=== PATIENT | female | born 1935 | race Caucasian/White ===

== ENCOUNTER 2016-05-27 16:47 | Inpatient (IN) | payer MEDICARE ==
--- NOTE | ~2016-05-27 | CT71 ---
[facility] A Service of [facility] RADIOLOGY TEXT RESULTS PATIENT: JACQUIE CASAREZ LOCATION: [facility] 323- : 35 UNIT #: [id number] AGE: [address]: Donis Sifuentes MD SEX: F ORDER DR: [id number] [facility] [address] [facility]. [place], [place] [address] [id number] I MR#: [id number] Acc #: [id number] NAME: JACQUIE CASAREZ. : 1935 SEX: F STUDY DATE/TIME: 06/09/2016 19:56 UNIT: A [facility] ROOM: [facility] STUDY DESCRIPTION: CT Head Wo Contrast Attending Physician: Donis Sifuentes M.D. Ordering Physician: Haydee Ontiveros M.D. Primary Care Physician: Ed Gates M.D. MEDICAL IMAGING REPORT This report is preliminary unless electronic signature is present EXAMINATION Noncontrast CT head. DATE 06/09/2016 at 19:56. HISTORY Weakness since 05/20/2016. Lethargy. Unsteady gait. History of cardiac disease. History of breast cancer. COMPARISON Noncontrast CT head 04/30/2006. TECHNIQUE This CT exam was performed with one or more of the following radiation dose reduction techniques: automatic exposure control, adjustment of mA and/or kV according to patient size, and iterative reconstruction. FINDINGS Chronic-appearing lacunar infarcts in the bilateral lentiform nuclei. Mild generalized atrophy. Periventricular white matter hypodensities thought to represent changes of chronic microvascular disease, similar to 04/30/2016. No evidence of acute or evolving infarct. Age-appropriate parenchymal atrophy. No acute calvarial abnormality. Paranasal sinuses and mastoid air cells are clear. IMPRESSION 1. No acute intracranial findings or significant change compared to 04/30/2016. 2. Chronic microvascular disease changes in the deep white matter of the brain, with chronic-appearing lacunar infarcts in the bilateral lentiform nuclei and, not mentioned in the report, within the right thalamus. [facility] A Service of [facility] RADIOLOGY TEXT RESULTS PATIENT: JACQUIE CASAREZ LOCATION: [facility] 323-01 : 35 UNIT #: [id number] AGE: [address]: Donis Sifuentes MD SEX: F ORDER DR: 3. Mild age-appropriate atrophy. Dictated by... Enid Richey M.D. THIS IS AN ELECTRONICALLY VERIFIED REPORT Enid Richey M.D. at 06/10/2016 10:01 AM CHILO/farooq TD: 06/10/2016 09:02 JOB #: [id number] MEDICAL IMAGING REPORT COPY
--- NOTE | ~2016-05-27 | XA166 ---
[facility] A Service of [facility] RADIOLOGY TEXT RESULTS PATIENT: JACQUIE CASAREZ LOCATION: B 560-01 : 35 UNIT #: [id number] AGE: [address]: Donis Sifuentes MD SEX: F ORDER DR: [id number] [facility] [address] [facility] [place], [place] [address] [id number] I MR#: [id number] Acc #: [id number] NAME: JACQUIE CASAREZ : 1935 SEX: F STUDY DATE/TIME: 06/01/2016 16:13 UNIT: [facility] ROOM: [facility] STUDY DESCRIPTION: XA PICC Line Placement WO Port Attending Physician: Donis Sifuentes M.D. Ordering Physician: Donis Sifuentes M.D. Primary Care Physician: Ed Gates M.D. MEDICAL IMAGING REPORT This report is preliminary unless electronic signature is present EXAM Attempted PICC line placement HISTORY Patient requires IV access for COPD exacerbation. PROCEDURE The procedure was explained to the patient including risks, benefits, potential complications, and potential for alternatives forms of treatment. Informed consent was obtained and prior to initiating the procedure, a formal timeout procedure was performed. Using all elements of maximal sterile barrier technique including hand hygiene, caps, sterile gowns and gloves, and masks, the right arm was prepped with 2% Chlorhexidine with cutaneous antisepsis and covered with a large sterile sheet. Real-time sterile ultrasound guidance was used to localize multiple right upper extremity veins all of which were found to be patent and compressible. They did seem to vary in caliber and upon access I was unable to advance a wire. Please note images of these vessels were technically limited as image quality on the sinus site was extremely poor. I subsequently turned my attention to the left side, again, multiple attempts were made without success. Again, there was limited visualization of the vessels due to poor quality images from the SonoSite. At this point, the procedure was terminated. A PICC line nurse will be contacted as will [employer] to address the image quality issues on the SonoSite. IMPRESSION Unsuccessful bilateral attempted PICC line placement. This was not felt to be due to poor visualization of the vessels due to poor quality images from the SonoSite, [employer] will be contacted for service on the SonoSite [facility] A Service of [facility] RADIOLOGY TEXT RESULTS PATIENT: JACQUIE CASAREZ LOCATION: [facility] [address] : 35 UNIT #: [id number] AGE: [address]: Donis Sifuentes MD SEX: F ORDER DR: and the PICC line nurse will also be contacted for PICC line placement. Dictated by... Светлана Smith M.D. THIS IS AN ELECTRONICALLY VERIFIED REPORT Светлана Smith M.D. at 06/02/2016 5:57 PM AFF/aa TD: 06/02/2016 10:43 JOB #: [id number] MEDICAL IMAGING REPORT COPY
--- NOTE | ~2016-05-27 | CR72 ---
[facility] A Service of [facility] RADIOLOGY TEXT RESULTS PATIENT: JACQUIE CASAREZ LOCATION: [facility] 560-01 : 35 UNIT #: [id number] AGE: [address]: Donis Sifuentes MD SEX: F ORDER DR: [id number] [facility] [address] [place], [place] [address] [id number] I MR#: [id number] Acc #: [id number] NAME: JACQUIE CASAREZ. : 1935 SEX: F STUDY DATE/TIME: 05/27/2016 17:51 UNIT: C3A PCU ROOM: [facility] STUDY DESCRIPTION: CR Chest Single View Portable Attending Physician: Donis Sifuentes M.D. Ordering Physician: Efrain Sanchez M.D. Primary Care Physician: Ed Gates M.D. MEDICAL IMAGING REPORT This report is preliminary unless electronic signature is present EXAM Portable AP view of the chest COMPARISON 04/29/16 and 04/06/[address] chest dated 04/30/16. INDICATIONS 80-year-old female with dyspnea, weakness for 1 week. FINDINGS As compared April 29, 2016, there is stable cardiomegaly with stable bibasilar atelectasis versus pneumonia and stable small bilateral pleural effusions. No evidence of pneumothorax. IMPRESSION 1. As compared to September 27, 2016. There is stable bibasilar atelectasis versus pneumonia with stable small bilateral pleural effusions. 2. Stable cardiomegaly. Dictated by... Dakota Tsai M.D. THIS IS AN ELECTRONICALLY VERIFIED REPORT Dakota Tsai M.D. at 06/01/2016 8:46 PM HARMEET/richard TD: 05/27/2016 21:32 JOB #: [id number] MEDICAL IMAGING REPORT COPY
--- NOTE | ~2016-05-27 | A ---
[facility] Nutrition Therapy DATE: 06/09/16 Patient: JACQUIE CASAREZ Physician: BENTLEY Address: [address] [facility] Room/Bed: [address] [place] [address], Zip: [place] [address] Admit Date: 05/27/16 Date of : 35 Height: 5 3 Weight: 222 101 NUTRITIONAL ASSESSMENT: REASON: Seen due to length of stay Admitting Dx: 80 y/o female admitted with weakness and AMS PMH: COPD, CHF, HTN, HLD, DM, anemia, hypothyroidism, chronic respiratory failure, reformed smoker Anthropometrics: Ht: 63", admission wt: 240 lbs, current wt: 222 lbs, BMI: 42 Labs: 06/08: Glucose 63, BUN 43 06/09: Glucose POC 89-115 Meds: Furosemide, Prednisone, Synthroid, PPI, Novolog (low SSI), Levemir I/O & Bowel function: LBM 06/07 Skin Integrity: Redness coccyx, bruises noted, edema BLE 2+ Assessment: Chart reviewed, events noted. Patient was supposed to be discharged yesterday, RD assessing now due to length of stay. I assume she was not discharged due to hypoglycemia, increased lethargy and not eating yesterday. Recent discharge on 05/12/16 following COPD exacerbation, RD previously documented high BMI on 05/28/16. She is on a healthy heart diet, sleeping upon RD visit to room with lunch untouched. On 2L nasal cannula, usually A/O x 2 with periods of confusion. See recs below, will follow. Dx: 1) Inadequate oral intake r/t lethargy, confusion AEB no PO intake yesterday. 2) Morbid obesity r/t lifestyle, PMH, diet AEB BMI 42. Intervention: FLOW COORDINATOR? Monitoring, Evaluation and Goals: 1. Adequate oral intake on appropriate diet > 50% of meals. 2. Gradual weight loss towards a healthy BMI range. 3. Glucose WNL. Monitor: Per protocol, criteria to determine if above goals met Recommendations: 1. Suggest FLOW COORDINATOR eval if patient is not safe for PO intake due mental status and lethargy. [facility] Nutrition Therapy DATE: 06/09/16 Patient: JACQUIE CASAREZ Physician: BENTLEY Address: [address] [place] [address] Room/Bed: [address] [facility], Zip: [place] [address] Admit Date: 05/27/16 Date of : 35 Height: 5 3 Weight: 222 101 2. If PO intake continues to be poor please order Ensure Enlive BID. 3. Continue to monitor glucose. RD will follow hospital course Moderate nutrition risk Respectfully, Orquidea Ibarra RD, [facility] [employer] [facility] cc: client file
--- NOTE | ~2016-05-27 | HP ---
Unit #: [id number] #: [id number] Patient: JACQUIE CASAREZ [id number] [address] [address] [id number] I MR#: [id number] NAME: JACQUIE CASAREZ. ROOM: [facility] Age: 80 Sex: F Admission Date: 05/27/2016 : 1935 Attending Physician: Donis Sifuentes M.D. Primary Care Physician: Ed Gates M.D. HISTORY AND PHYSICAL CHIEF COMPLAINT Altered mental status. HISTORY OF PRESENTING ILLNESS An 80-year-old female with multiple medical problems was recently discharged from hospital on May 12, 2016 after being treated for acute respiratory failure with acute COPD exacerbation and acute congestive heart failure, came back for altered mental status. Most of the history was taken from the patient's son as patient is not able to provide much history. According to son, she was doing very well till Wednesday. Yesterday she was feeling lethargic, would not wake up for them and then she started shaking a lot. Nurse practitioner came to see the patient and advised to bring her to ER to rule out any infectious etiology. Patient seems to be awake and alert at this time but does not want to communicate much. There is no history of nausea or vomiting. There is no history of fever, no history of diarrhea, no history of abdominal pain or chest pain or any syncopal episode. PAST MEDICAL HISTORY 1. Chronic respiratory failure. 2. COPD. 3. Chronic diastolic congestive heart failure. 4. Obstructive sleep apnea. 5. Hypertension. 6. Diabetes mellitus. 7. Anemia of chronic disease. 8. Hypothyroidism. 9. Hyperlipidemia. 10. Reformed smoker. HOME MEDICATIONS Home medications are as per med rec which were reviewed and adjusted. SOCIAL HISTORY Patient lives at home with her son. She has a past history of smoking, quit some time ago, no alcohol abuse or drug abuse. PAST SURGICAL HISTORY 1. History of cholecystectomy. 2. History of EGD. 3. History of c-scope. ALLERGIES Penicillin and ethanolamine. Unit #: [id number] #: [id number] Patient: JACQUIE CASAREZ FAMILY HISTORY Unremarkable. REVIEW OF SYMPTOMS As per history of presenting illness. PHYSICAL EXAMINATION GENERAL: Patient was seen in ICU room 5. VITAL SIGNS: Blood pressure 105/48. Respiratory rate 25. Pulse is 88. Temperature 99.9. HEENT: Head is normocephalic. Eye movements are normal. NECK: Neck is supple. CHEST: Has fair air entry. Few wheezing is heard bilateral. CVS: S1, S2 positive, regular rhythm. ABDOMEN: Obese, soft, no tenderness or rigidity. EXTREMITIES: Very mild erythema. Pulses are palpable. DIRECTOR HOSPICE OPERATIONS: Patient is awake, alert. NEUROLOGIC: Neuro exam was very limited because of noncompliance and resistant exam. DIAGNOSTIC STUDIES LABORATORY WORKUP: WBC 6.3, hemoglobin 9.5, hematocrit 30.1 and platelet count of 238. BMP shows sodium 143, potassium 4.3, chloride 93, BUN 25, creatinine 1.0, calcium 9.3. BNP is 231. Urinalysis shows 2+ leukocyte esterase, negative bacteria. Influenza A and B were negative. Troponin is less than 0.05. IMAGING: Chest x-ray was done which shows stable cardiomegaly. ASSESSMENT Patient is being admitted to a telemetry unit with: 1. Acute hypoxic/hypercarbic respiratory failure. 2. Acute chronic obstructive pulmonary disease exacerbation. 3. Aesfu-bn-aryberq diastolic congestive heart failure. 4. Probable urinary tract infection. Urine culture is pending. 5. Diabetes mellitus type 2. 6. Chronic anemia. 7. Hypothyroidism. 8. Hypotension with a history of hypertension. PLAN 1. Plan is admit to telemetry unit. 2. Dr. Octavio Hernandez has been consulted. 3. IV Solu-Medrol is being started. 4. BiPAP is being started at sleeping time. 5. Lasix was increased to b.i.d. 6. Home medications have been reviewed. 7. IV Rocephin is being started. 8. Urine culture is being done. 9. Discussed with the patient's son at length about plan of care. He is agreeable for rehab after this discharge. Dictated by Unit #: [id number] #: [id number] Patient: JACQUIE CASAREZ M.D. KN/cf TD: 05/28/2016 17:13 JOB #: [id number] HISTORY AND PHYSICAL X Haydee Ontiveros MD HISTORY AND PHYSICAL
--- NOTE | ~2016-05-27 | CO ---
Unit #: [id number] #: [id number] Patient: JACQUIE CASAREZ [id number] [address] [address] [id number] I MR#: [id number] NAME: JACQUIE CASAREZ. ROOM: [facility] Age: 80 Sex: F Admission Date: 05/27/2016 : 1935 Attending Physician: Donis Sifuentes M.D. Primary Care Physician: Ed Gates M.D. CONSULTATION REPORT HISTORY OF PRESENT ILLNESS Ms. Casarez is an 80-year-old white female well known to me with a history of severe COPD, chronic hypoxemic hypercarbic respiratory failure, chronic diastolic congestive heart failure, history of pulmonary embolus, history of left lower lobe pneumonia with parapneumonic effusion, obstructive sleep apnea maintained on CPAP, hypertension, diabetes, hypothyroidism, chronic anemia. She was apparently at home and is being followed by [facility]. Apparently, they felt that she was in congestive heart failure and they sent her to the emergency room where she has been admitted. Her chest x-ray reveals bilateral effusions, unchanged from last admission in late April. The patient is not able to give much history. She says that she does not know why she is here. She does know where she is. In the emergency room, lab work revealed arterial blood gas is 7.38, pCO2 of 72, pO2 of 111 on BiPAP 16/6 at 40%. Previous blood gas is 7.38, pCO2 of 71, pO2 of 93 on 2 L. Lab work revealed a CO2 of 39 on her BMP. BNP was 231. White count was 6300, hematocrit was 30.1, platelet count was normal. PAST MEDICAL HISTORY 1. Severe COPD. 2. Chronic hypoxemic hypercarbic respiratory failure. 3. Obstructive sleep apnea, maintained on CPAP 10. 4. Hypothyroidism. 5. Hypertension. 6. Diabetes. 7. Anemia. 8. Exudative lymphocytic effusion on left. 9. Reformed smoker. PAST SURGICAL HISTORY 1. Cholecystectomy. 2. Colonic polyps removed. 3. Upper GI endoscopy. ALLERGIES Penicillin, antihistamines, ethanolamine. SOCIAL HISTORY Reformed smoker. No alcohol or illicit drugs. Resides at home. Lives with son. FAMILY HISTORY No familial lung disease. Unit #: [id number] #: [id number] Patient: JACQUIE CASAREZ REVIEW OF SYSTEMS CONSTITUTIONAL: Denies fever and chills. HEENT: No rhinorrhea, nasal congestion. PULMONARY: She says she does not know but denies. GASTROINTESTINAL: Nausea and vomiting. GENITOURINARY: Denies hematuria or dysuria. NEUROLOGIC: Denies stroke. PSYCHIATRIC: Does have some psychiatric disorders. SKIN: No rashes. She does have easy bruising. Otherwise symptoms negative. PHYSICAL EXAMINATION GENERAL: Morbidly obese female, no distress. VITAL SIGNS: Blood pressure 115/50, pulse 63, respiratory rate 14, afebrile. HEENT: Normocephalic and atraumatic. Pupils equal, round, and reactive. Sclerae nonicteric. Nasal passages patent. Mallampati IV oral cavity. Mucous membranes moist. NECK: Supple. Trachea midline. No cervical or supraclavicular lymphadenopathy. LUNGS: Reveal diminished breath sounds in the bases, otherwise fairly clear. CARDIAC: Regular rate and rhythm. Could not appreciate murmur, rub, or gallop. ABDOMEN: Nontender. Bowel sounds present. No hepatosplenomegaly. EXTREMITIES: Without clubbing, cyanosis. There is trace edema bilaterally. NEUROLOGIC: Awake, oriented to person and place. Answers questions and moves all extremities. DIAGNOSTIC STUDIES LABORATORY: Laboratory studies personally reviewed as noted. IMPRESSION 1. Acute on chronic hypoxemic respiratory failure. 2. Chronic obstructive pulmonary disease. 3. Possible mild congestive heart failure. 4. Obstructive sleep apnea on CPAP. 5. Other problems as mentioned above. PLAN Will diurese gently. Continue pulmonary medicines. Continue O2, nocturnal BiPAP. DVT prophylaxis. Further recommendations pending this. Dictated by... Richy Hernandez M.D. GEMA/fer TD: 05/28/2016 16:29 JOB #: [id number] Unit #: [id number] #: [id number] Patient: JACQUIE CASAREZ CONSULTATION REPORT X Richy Hernandez MD CONSULTATION REPORT
--- NOTE | ~2016-05-27 | DS ---
Unit #: [id number] #: [id number] Patient: JACQUIE CASAREZ [id number] [address] [place], [place] [address] [id number] I MR#: [id number] NAME: JACQUIE CASAREZ. ROOM: 323 Age: 80 Sex: F Admission Date: 05/27/2016 : 1935 Discharge Date: 06/10/2016 Attending Physician: Donis Sifuentes M.D. Primary Care Physician: Ed Gates M.D. DISCHARGE SUMMARY ADDENDUM Please note, I have discharged her three times, but we were not able to find a rehab facility because she has run out of her days. The family first decided to send her to rehab and then later on decided for her to go home. Please refer to the other Discharge Summary dictated by me on June 01, 2016, and Dr. Sifuentes did an addendum on June 04, 2016. DISCHARGE DIAGNOSES Same as per June 01, 2016. Addendum: Patient was very lethargic and was not communicating with the staff or her family member for the last two days, so workup was done. A CT scan of the head was done which was negative, and all the workup has been negative, although WBC count is high. Patient is complaining of dysuria today. We are going to check urinalysis and if it is positive, will send her with p.o. antibiotics. I discussed with patient's son at length about plan of care yesterday, and he did verbalize understanding. They do want patient to come home. DISCHARGE MEDICATIONS (UPDATED LIST) 1. Aspirin 81 mg daily. 2. Protonix 40 mg twice daily. 3. Potassium 40 mEq daily. 4. Synthroid 125 mcg daily. 5. Arimidex 1 mg daily. 6. Lopressor 12.5 mg q.12. 7. Breo continue home dose. 8. Furosemide 40 mg twice daily. 9. Lovastatin 40 mg at bedtime. 10. Nebulizer treatment with albuterol and ipratropium q.i.d. 11. Prednisone 10 mg daily until June 12, 2016. 12. Tylenol 650 q.6 p.r.n. 13. Neurontin 300 mg 3 times daily. 14. Celexa 10 mg daily. 15. Effexor 150 mg daily. DISCHARGE INSTRUCTIONS 1. Patient will be discharged home. 2. Urinalysis will be done before discharge, and if it is leukocyte or bacteria positive, will start her on some p.o. antibiotics. 3. Medications per medication reconciliation. 4. Follow up with primary care provider in one week. Unit #: [id number] #: [id number] Patient: JACQUIE CASAREZ 5. PT or OT at home. 1. Dictated by... Sanjuana Almeida TD: 06/10/2016 15:36 JOB #: [id number] DISCHARGE SUMMARY X Haydee Ontiveros MD X DISCHARGE SUMMARY
--- NOTE | ~2016-05-27 | DS ---
Unit #: [id number] #: [id number] Patient: JACQUIE CASAREZ [id number] [address] [address] [id number] I MR#: [id number] NAME: JACQUIE CASAREZ. ROOM: 550 Age: 80 Sex: F Admission Date: 05/27/2016 : 1935 Discharge Date: 06/04/2016 Attending Physician: Donis Sifuentes M.D. Primary Care Physician: Ed Gates M.D. DISCHARGE SUMMARY ADDENDUM DISPOSITION Going to [facility] for rehab. FOLLOWUP Follow up with Dr. Hunter at [facility]. DISCHARGE INSTRUCTIONS Also extending home nursing care component to follow patient at the [facility]. DISCHARGE MEDICATIONS There has been no change in the discharge med rec as dictated per Dr. Ontiveros's previous discharge summary. Please note patient needs only three more days of IV antibiotic for her UTI. Dictated by... Donis Sifuentes M.D. OC/cf TD: 06/04/2016 16:51 JOB #: [id number] DISCHARGE SUMMARY X Donis Sifuentes MD DISCHARGE SUMMARY
--- NOTE | ~2016-05-27 | DS ---
Unit #: [id number] #: [id number] Patient: MARCIA CASAREZ [id number] [address] [address] [id number] I MR#: [id number] NAME: MARCIA CASAREZ. ROOM: [facility] Age: 80 Sex: F Admission Date: 05/27/2016 : 1935 Discharge Date: 06/01/2016 Attending Physician: Donis Sifuentes M.D. Primary Care Physician: Ed Gates M.D. DISCHARGE SUMMARY FINAL DIAGNOSES 1. Acute hypoxic/hypercarbic respiratory failure. 2. Acute chronic obstructive pulmonary disease exacerbation. 3. Chronic respiratory acidosis. 4. Acute on chronic diastolic congestive heart failure. 5. Urinary tract infection. 6. Obstructive sleep apnea. 7. Hypothyroidism. 8. Diabetes mellitus type 2. 9. Chronic anemia. 10. Reformed smoker. 11. Hyperlipidemia. DISCHARGE MEDICATIONS 1. IV ceftazidime q.12. 2. Synthroid 125 mcg daily. 3. Potassium 40 mEq daily. 4. Protonix 40 mg twice daily. 5. Aspirin 81 mg daily. 6. Lovastatin 40 mg at bedtime. 7. Furosemide 40 mg twice daily. 8. Lopressor 12.5 mg q.12. 9. Arimidex 1 mg daily. 10. Effexor-XR 150 mg daily. 11. Celexa 10 mg daily. 12. Neurontin 300 mg 3 times daily. 13. Prednisone 40 mg daily for 3 days, then decrease 10 mg every 3 days until off. 14. Symbicort 160/4.5 at 2 puffs inhaler twice daily. 15. Nebulizer treatment with albuterol/ipratropium q.i.d. routine and q.4 p.r.n. CONSULTATIONS DURING HOSPITALIZATION Dr. Octavio Hernandez from pulmonary services. DIAGNOSTIC STUDIES LABORATORY ON DISCHARGE: Glucose 143. BMP shows sodium of 137, potassium 3.8, chloride 87, CO2 of 40, BUN 35, creatinine 0.9, and calcium 9. CBC shows WBC of 9.2, hemoglobin 9.1, hematocrit 28.1, and platelet count of 271,000. Urine culture is growing Morganella morganii more than 100,000 colonies which is sensitive only to IV ceftazidime, and patient is being started on that. BNP on admission was 231. Influenza A and B were negative. Unit #: [id number] #: [id number] Patient: MARCIA CASAREZ [facility] Ms. Marcia Casarez is an 80-year-old female with very poor health. She was discharged on May 11, 2016, and was readmitted again with acute respiratory failure and acute COPD exacerbation. Patient had some altered mental status also. A lot of the history was taken from patient's son. Patient was lethargic and would not wake up and she was shaking a lot. Patient was admitted to telemetry unit at [facility]. Dr. Octavio Hernandez was consulted. Intravenous Solu-Medrol was started and BiPAP was started. Patient received antibiotic, IV Solu-Medrol, and nebulizer treatment. Patient also was found to have a urinary tract infection, and antibiotic has been changed. Patient received Rocephin from the , and on the it was changed to ceftazidime. Patient needs to continue that for five more days. Patient is stable, but prognosis is poor. She has chronic respiratory failure, obstructive sleep apnea, and chronic diastolic heart failure. Patient is being discharge to rehab facility. PHYSICAL EXAMINATION VITAL SIGNS: Blood pressure is 112/57, respiratory rate 16, pulse 60, and temperature 98.5. CHEST: Decreased air entry bilaterally. CARDIOVASCULAR: S1 and S2 positive, regular rhythm. ABDOMEN: Obese. DISCHARGE INSTRUCTIONS 1. Patient will be discharged to rehab facility to continue nursing care, physical therapy, and occupational therapy. 2. Medications as per medication reconciliation. 3. Physical therapy/occupational therapy at rehab. 4. Oxygen to keep saturation above 94%. 5. Follow up with Dr. Octavio Hernandez in three to four weeks. 1. Dictated by... Sanjuana Almeida TD: 06/01/2016 15:31 JOB #: [id number] DISCHARGE SUMMARY X Haydee Ontiveros MD X DISCHARGE SUMMARY
--- NOTE | ~2016-05-27 | EKG ---
PATIENT: JACQUIE CASAREZ UNIT #: [id number] Ventricular Rate: 68 BPM Atrial Rate: 68 BPM P-R Interval: 192 ms QRS Duration: 154 ms Q-T Interval: 472 ms QTC Calculation(Bezet): 501 ms P [place]: 67 degrees Calculated R [place]: -59 degrees Calculated T [place]: 25 degrees Diagnosis Line: Diagnosis Line: Normal sinus rhythm Diagnosis Line: Right bundle branch block Diagnosis Line: Left anterior fascicular block Diagnosis Line: Bifascicular block Diagnosis Line: Abnormal ECG Diagnosis Line: When compared with ECG of 02-MAY-2016 18:16, Diagnosis Line: Premature atrial complexes are no longer Present Diagnosis Line: Confirmed by YOGESH ROGERS MD ([id number]) on 05/27/2016 Diagnosis Line: 6:28:38 PM INTERPRETING MD: KEN FERRARO
--- NOTE | ~2016-05-27 | BMI ---
[facility] Nutrition Therapy DATE: 05/28/16 Patient: JACQUIE Bell HERMELINDO Physician: BENTLEY Address: [address] [place] [address] Room/Bed: [address], Zip: [place] [address] Admit Date: 05/27/16 Date of : 35 Height: 5 3 Weight: 225 102.5 HIGH BMI NOTE: DX: 80 y/o female admitted with lethargy, respiratory failure, UTI ANTHROPOMETRICS: Ht: 63", Wt: 102.5 kg (225 lbs), BMI: 42, IBW: 52.3 kg PMH: (Per 05/01/16 H&P) COPD, DM, anxiety, maribel, anemia, hypothyroidism DIET: Healthy heart diet ordered INTERVENTION: Continue diet vs EN if remains on continuous Bipap ASSESSMENT: RD previously assessed this patient- notes reviewed. At last admission was on mechanical soft diet with Glucerna BID eating 50-100% of meals. Patient is on continuous Bipap in ICU, has healthy heart diet ordered but is not able to eat at this time due to respiratory status and lethargy. She is on IV Solu-Medrol and Abx. Meds/labs reviewed, RD leaving EN recs in case the patient remains on Bipap, see below. Will further assess at length of stay unless EN is started. Note morbid obesity. ESTIMATED NUTRITION NEEDS: 9226-3795 kcals per day (11-14 kcals/kg) 78-105 g protein per day (1.5-2.0 g/kg IBW) Fluids consistent with kcal needs or per MD RECOMMENDATIONS: 1. Add diabetic restriction to current diet order (healthy heart). Patient may also require mechanical soft restriction, as this was her diet ordered at last admission. Order PITCH GATHERER eval if necessary. 2. If the patient is to remain on continous Bipap consider placing a DHT and starting enteral feeds with Glucerna 1.5 @ 20 ml and increase by 10 ml q 4 hrs until goal rate of 40 ml/hr is reached, to provide 1440 kcals, 79 g protein and 730 ml water. Once at goal rate flush with 250 ml free water QID or per MD RD will fully assess at lenght of stay unless enteral feeds are started Respectfully, [facility] Nutrition Therapy DATE: 05/28/16 Patient: JACQUIE Bell HERMELINDO Physician: BENTLEY Address: [address] [place] [address] Room/Bed: [address], Zip: [place] [id number] Admit Date: 05/27/16 Date of : 35 Height: 5 3 Weight: [address], LD Food and Nutritional Services [facility] [place] [facility] cc: client file
--- NOTE | ~2016-05-27 | CR72 ---
[facility] A Service of [facility] & [facility] RADIOLOGY TEXT RESULTS PATIENT: JACQUIE CASAREZ LOCATION: [facility] 560-01 : 35 UNIT #: [id number] AGE: [address]: Donis Sifuentes MD SEX: F ORDER DR: [id number] [facility] [address] [place], [place] [address] [id number] I MR#: [id number] Acc #: [id number] NAME: JACQUIE CASAREZ. : 1935 SEX: F STUDY DATE/TIME: 06/01/2016 18:07 UNIT: [facility] ROOM: [facility] STUDY DESCRIPTION: CR Chest Single View Portable Attending Physician: Donis Sifuentes M.D. Ordering Physician: Richy Hernandez M.D. Primary Care Physician: Ed Gates M.D. MEDICAL IMAGING REPORT This report is preliminary unless electronic signature is present EXAM Portable chest, 06/01/2016 HISTORY Shortness of breath and generalized weakness for 1 week. COPD exacerbation, smoking history. FINDINGS The heart is enlarged but stable compared with 05/27/2016. There are bilateral pleural effusions with bibasilar infiltrates or atelectasis. Mild pulmonary vascular congestion. No pneumothorax. IMPRESSION 1. Stable cardiomegaly compared with 05/27/2016. 2. Bilateral pleural effusions with bibasilar infiltrates or atelectasis. 3. Mild pulmonary vascular congestion. Dictated by... Bjorn Wakefield M.D. THIS IS AN ELECTRONICALLY VERIFIED REPORT Bjorn Wakefield M.D. at 06/02/2016 4:20 PM KRT/jayden TD: 06/02/2016 02:07 JOB #: [id number] MEDICAL IMAGING REPORT COPY
[~2016-05-27 16:47] MED LIST: ADVAIR 250-501 EAC1 INH; ADVAIR 2501 DISK W/1 INH; ALBUTEROL MININEB NEB; ALBUTEROL17 GM INH; ALBUTEROL2.5 MG/0.5 INH; ALTOPREV40 MG PO; ANEXSIA 7.5/3251 TA1 PO; ARIMIDEX1 MG PO; ARTIFICIAL TEAR1 DRP OU; ARTIFICIAL TEAR15 M9 OU; ASPIRIN EC81 M1 PO; ASPIRIN PO; ASPIRIN81 MG PO; ATIVAN PO; ATROVENT HFA12.9 GM INH; AZMACORT20 GM INH; BACITRACIN30 GM TOP; BENADRYL25 M1 PO; BENAZEPRIL-HCT1 EAC1 PO; BENAZEPRIL-HCTZ1 T21 PO; BUDESONIDE0.25 MG/1; CALAN SR PO; CARAFATE1 G PO; CELEXA10 MG PO; CIPRO PO; COMBIVENT; COUMADIN PO; COUMADIN5 MG PO; FLONASE 0.05% N16 GM; FOLIC ACID PO; FOLIC ACID1 MG PO; GABAPENTIN300 M2 PO; GLYBURIDE MICRON3 MG PO; GLYNASE PO; HYDROCODON-ACE1 EAC1 PO; HYDROCODON-ACE1 EAC5 PO; IMIPRAMINE HCL50 M1 PO; IPRATROPIUM0.2 MG/ML NEB; K-DUR20 ME1 PO; KLOR-CON PO; LACTULOSE 20 GM/30 ML; LASIX PO; LASIX20 MG PO; LEVAQUIN PO; LEXAPRO PO; LORAZEPAM1 MG PO; LOTENSIN HCT 201 TAB PO; LOVENOX100 MG/ML INJ; MEDROL DOSEPAK4 MG PO; MEDROL PO; METOPROLOL TAR25 MG PO; MEVACOR PO; MEVACOR40 MG PO; MICRO-K10 ME2 PO; NEURONTIN100 MG PO; NITROFURANTOIN100 M3 PO; NYSTATIN1000 GM TOP; OXYGEN; POTASSIUM CHLO10 ME1 PO; POTASSIUM CHLO10 MEQ PO; PREDNISONE PO; PREDNISONE10 MG/DOSE PO; PRILOSEC40 MG PO; PROTONIX PO; PULMICORT200 MCG/AE INH; REMERON45 MG PO; RISPERDAL1 M1 PO; SENNA S TABLET1 TAB PO; SPIRIVA18 MCG INH; SYMBICORT INH; SYNTHROID PO; SYNTHROID125 PO; TOFRANIL PO; TRAMADOL HCL50 M1 PO; TYLENOL325 M1 PO; VENLAFAXINE HC150 MG PO; VERAPAMIL ER180 MG PO; VICODIN 5/500 T1 TAB PO; VITAMIN D50000 UNIT PO; WELLBUTRIN XL PO; ZANTAC PO; ZITHROMAX PO
[2016-05-27 17:10] LABS: BASOPHIL% 0.5 % (0-2.5); EOSINOPHIL# 0.3 X10e3 (0-0.7); EOSINOPHIL% 3.9 % (0.0-7.0); HEMATOCRIT 29.7 % (35.0-45.0); HEMOGLOBIN 9.4 gm/dL (12.0-16.0); LYMPHOCYTE# 2.5 X10e3 (1.0-3.5); LYMPHOCYTE% 35.3 % (17.0-45.0); MEAN CELL VOLUME 83.7 FL (83-96); MEAN CORPUSCULAR HEMOGLOBIN 26.4 PG (28-34); MEAN CORPUSCULAR HGB CONC 31.6 g/dL (30-36); MEAN PLATELET VOLUME 7.5 FL (6.5-11.5); MONOCYTE# 0.8 X10e3 (0-1.0); MONOCYTE% 11.6 % (3.0-12.0); NEUTROPHIL# 3.4 X10e3 (1.5-7.1); NEUTROPHIL% 48.7 % (40-75); PLATELET COUNT 242 X10e3 (140-420); RED BLOOD COUNT 3.55 X10e (3.90-5.30); RED CELL DISTRIBUTION WIDTH 16.4 % (11.0-15.5); WHITE BLOOD COUNT 6.9 X10e3 (4.0-10.5)
[2016-05-27 17:17] LABS: DIFF IND NO
[2016-05-27 17:20] LABS: INFLUENZA A NEG (NEG); INFLUENZA B NEG (NEG)
[2016-05-27 17:27] LABS: POC - CKMB 1.2 ng/mL (0.0-7.9); POC - TROPONIN <0.05 ng/mL (<=0.05)
[2016-05-27 17:34] LABS: ALBUMIN SERUM 2.5 g/dL (3.5-5.0); ALKALINE PHOSPHATASE 74 U/L (32-92); ALT (SGPT) 13 U/L (10-40); AST (SGOT) 16 U/L (10-42); BILIRUBIN, DIRECT 0.1 mg/dL (0.0-0.2); BILIRUBIN,INDIRECT 0.4 mg/dL (0.0-0.9); BILIRUBIN,TOTAL 0.5 mg/dL (0.2-2.0); BLOOD UREA NITROGEN 23 mg/dL (9-23); BUN/CREATININE RATIO 25.55; CALCIUM SERUM 8.6 mg/dL (8.4-10.2); CARBON DIOXIDE 39 mmol/L (22-31); CHLORIDE 95 mmol/L (100-111); CREATININE SERUM 0.9 mg/dL (0.6-1.4); GLOM FILT RATE Estimated ABOVE60 mL/min (>60); GLUCOSE FASTING 139 mg/dL (70-110); POTASSIUM 3.5 mmol/L (3.5-5.1); PROTEIN TOTAL SERUM 6.2 g/dL (6.0-8.3); SODIUM 137 mmol/L (135-145)
[2016-05-27 18:25] LABS: URINE SOURCE CLEAN CATCH
[2016-05-27 18:33] LABS: URINE APPEARANCE CLEAR; URINE BILIRUBIN NEG (NEG); URINE BLOOD NEG (NEG); URINE COLOR YELLOW; URINE GLUCOSE NEG (NEG); URINE KETONE NEG (NEG); URINE LEUKOCYTE ESTERASE 2+ (NEG); URINE NITRATE NEG (NEG); URINE PROTEIN NEG (NEG); URINE UROBILINOGEN 0.2 MG/DL (NEG)
[2016-05-27 18:35] LABS: CULTURE INDICATED? YES; U HYALINE CASTS AUWI 0-2 /[LPF]; URBCS1 AUWI 0-2 /[HPF] (0-2); URINE BACTERIA AUWI NEG (NEGATIVE); URINE SQUAMOUS EPITHELIAL CELL OCC /[HPF]
[2016-05-27] MEDS ORDERED: SYNTHROID125 PO (18:59)
[2016-05-27] MEDS ORDERED: ALTOPREV40 MG PO (18:59)
[2016-05-27] MEDS ORDERED: POTASSIUM CHLO20 ME1 PO (19:07)
[2016-05-27] MEDS ORDERED: ANASTROZOLE1 MG PO (19:08)
[2016-05-27] MEDS ORDERED: PROTONIX PO (19:08)
[2016-05-27] MEDS ORDERED: GABAPENTIN300 M2 PO (19:09)
[2016-05-27] MEDS ORDERED: LASIX20 MG PO (19:09)
[2016-05-27] MEDS ORDERED: VERAPAMIL ER120 M1 PO (19:10)
[2016-05-27] MEDS ORDERED: CELEXA10 M1 PO (19:10)
[2016-05-27] MEDS ORDERED: LOPRESSOR PO (19:11)
[2016-05-27] MEDS ORDERED: ASPIRIN81 MG PO (19:11)
[2016-05-27] MEDS ORDERED: EFFEXOR-XR150 MG PO (19:12)
[2016-05-27] MEDS ORDERED: BREO ELLIPTA 11 EACH INH (19:12)
[2016-05-27 20:22] LABS: ARTERIAL BLD GAS O2 SATURATION 95.9 % (90.0-100.0); ARTERIAL BLOOD GAS HCO3 42.7 mmol/L; ARTERIAL BLOOD GAS MET HB 0.2 %sat (0.0-2.0); ARTERIAL BLOOD GAS PO2 93.2 mmHg (80.0-100); ARTERIAL BLOOD GAS pH 7.385 (7.350-7.450)
[2016-05-27 20:25] LABS: ARTERIAL BLOOD GAS ALLEN TEST NORMAL; ARTERIAL BLOOD GAS ART SITE RIGHT RADIAL; ARTERIAL BLOOD GAS DELIVERY NASAL CANNULA; ARTERIAL BLOOD GAS PCO2 71.5 mmHg (35.0-45.0); ARTERIAL DRAW? YES
[2016-05-27 23:11] LABS: ARTERIAL BLD GAS O2 SATURATION 95.5 % (90.0-100.0); ARTERIAL BLOOD GAS HCO3 43.4 mmol/L; ARTERIAL BLOOD GAS MET HB 0.9 %sat (0.0-2.0); ARTERIAL BLOOD GAS pH 7.385 (7.350-7.450)
[2016-05-27 23:17] LABS: ARTERIAL BLOOD GAS PCO2 72.5 mmHg (35.0-45.0)
[2016-05-27 23:18] LABS: ARTERIAL BLOOD GAS ALLEN TEST NORMAL; ARTERIAL BLOOD GAS ART SITE RIGHT RADIAL; ARTERIAL BLOOD GAS DELIVERY BIPAP 16/6; ARTERIAL DRAW? YES
[2016-05-28 05:52] LABS: BASOPHIL% 0.2 % (0-2.5); HEMATOCRIT 30.1 % (35.0-45.0); HEMOGLOBIN 9.5 gm/dL (12.0-16.0); LYMPHOCYTE# 1.1 X10e3 (1.0-3.5); LYMPHOCYTE% 17.9 % (17.0-45.0); MEAN CELL VOLUME 83.8 FL (83-96); MEAN CORPUSCULAR HEMOGLOBIN 26.6 PG (28-34); MEAN CORPUSCULAR HGB CONC 31.7 g/dL (30-36); MONOCYTE# 0.1 X10e3 (0-1.0); NEUTROPHIL# 5.1 X10e3 (1.5-7.1); NEUTROPHIL% 79.9 % (40-75); PLATELET COUNT 238 X10e3 (140-420); RED BLOOD COUNT 3.59 X10e (3.90-5.30); RED CELL DISTRIBUTION WIDTH 16.2 % (11.0-15.5); WHITE BLOOD COUNT 6.3 X10e3 (4.0-10.5)
[2016-05-28 05:56] LABS: DIFF IND NO
[2016-05-28 07:06] LABS: CALCIUM SERUM 9.3 mg/dL (8.4-10.2); GLOM FILT RATE Estimated 56.7 mL/min (>60); POTASSIUM 4.3 mmol/L (3.5-5.1)
[2016-05-29 06:58] LABS: BLOOD UREA NITROGEN 31 mg/dL (9-23); BUN/CREATININE RATIO 34.44; CALCIUM SERUM 9.5 mg/dL (8.4-10.2); CARBON DIOXIDE 40 mmol/L (22-31); CHLORIDE 92 mmol/L (100-111); CREATININE SERUM 0.9 mg/dL (0.6-1.4); GLOM FILT RATE Estimated ABOVE60 mL/min (>60); GLUCOSE FASTING 223 mg/dL (70-110); MAGNESIUM 1.7 mg/dL (1.6-3.0); POTASSIUM 4.2 mmol/L (3.5-5.1); SODIUM 141 mmol/L (135-145)
[2016-05-30 06:24] LABS: HEMOGLOBIN 9.1 gm/dL (12.0-16.0); MEAN CELL VOLUME 83.7 FL (83-96); MEAN CORPUSCULAR HEMOGLOBIN 26.3 PG (28-34); MEAN CORPUSCULAR HGB CONC 31.5 g/dL (30-36); MEAN PLATELET VOLUME 8.4 FL (6.5-11.5); RED BLOOD COUNT 3.47 X10e (3.90-5.30); RED CELL DISTRIBUTION WIDTH 16.1 % (11.0-15.5)
[2016-05-30 06:25] LABS: WHITE BLOOD COUNT 9.7 X10e3 (4.0-10.5)
[2016-05-30 07:06] LABS: CALCIUM SERUM 9.3 mg/dL (8.4-10.2); GLOM FILT RATE Estimated 56.7 mL/min (>60); POTASSIUM 3.6 mmol/L (3.5-5.1)
[2016-05-31 06:03] LABS: HEMATOCRIT 28.1 % (35.0-45.0); HEMOGLOBIN 9.1 gm/dL (12.0-16.0); MEAN CELL VOLUME 82.7 FL (83-96); MEAN CORPUSCULAR HEMOGLOBIN 26.9 PG (28-34); MEAN CORPUSCULAR HGB CONC 32.5 g/dL (30-36); MEAN PLATELET VOLUME 8.2 FL (6.5-11.5); RED BLOOD COUNT 3.4 X10e (3.90-5.30); RED CELL DISTRIBUTION WIDTH 15.9 % (11.0-15.5); WHITE BLOOD COUNT 9.2 X10e3 (4.0-10.5)
[2016-05-31 06:50] LABS: BLOOD UREA NITROGEN 35 mg/dL (9-23); BUN/CREATININE RATIO 38.88; CARBON DIOXIDE 40 mmol/L (22-31); CHLORIDE 87 mmol/L (100-111); CREATININE SERUM 0.9 mg/dL (0.6-1.4); GLOM FILT RATE Estimated ABOVE60 mL/min (>60); GLUCOSE FASTING 134 mg/dL (70-110); POTASSIUM 3.8 mmol/L (3.5-5.1); SODIUM 137 mmol/L (135-145)
[2016-06-04 06:12] LABS: CALCIUM SERUM 9.3 mg/dL (8.4-10.2); GLOM FILT RATE Estimated 56.7 mL/min (>60); POTASSIUM 4.1 mmol/L (3.5-5.1)
[2016-06-06 07:12] LABS: HEMATOCRIT 30.3 % (35.0-45.0); HEMOGLOBIN 9.7 gm/dL (12.0-16.0); MEAN CELL VOLUME 82.2 FL (83-96); MEAN CORPUSCULAR HEMOGLOBIN 26.4 PG (28-34); MEAN CORPUSCULAR HGB CONC 32.2 g/dL (30-36); MEAN PLATELET VOLUME 8.9 FL (6.5-11.5); RED BLOOD COUNT 3.69 X10e (3.90-5.30); WHITE BLOOD COUNT 11.8 X10e3 (4.0-10.5)
[2016-06-06 07:54] LABS: BUN/CREATININE RATIO 42.72; CALCIUM SERUM 9.2 mg/dL (8.4-10.2); CREATININE SERUM 1.1 mg/dL (0.6-1.4); GLOM FILT RATE Estimated 50.8 mL/min (>60); POTASSIUM 4.3 mmol/L (3.5-5.1)
[2016-06-08 06:28] LABS: BLOOD UREA NITROGEN 43 mg/dL (9-23); BUN/CREATININE RATIO 47.77; CALCIUM SERUM 9.1 mg/dL (8.4-10.2); CARBON DIOXIDE 38 mmol/L (22-31); CHLORIDE 92 mmol/L (100-111); CREATININE SERUM 0.9 mg/dL (0.6-1.4); GLOM FILT RATE Estimated ABOVE60 mL/min (>60); GLUCOSE FASTING 63 mg/dL (70-110); POTASSIUM 3.7 mmol/L (3.5-5.1); SODIUM 136 mmol/L (135-145)
[2016-06-08 06:33] LABS: HEMATOCRIT 32.6 % (35.0-45.0); HEMOGLOBIN 10.2 gm/dL (12.0-16.0); MEAN CELL VOLUME 83.3 FL (83-96); MEAN CORPUSCULAR HGB CONC 31.2 g/dL (30-36); MEAN PLATELET VOLUME 8.8 FL (6.5-11.5); RED BLOOD COUNT 3.92 X10e (3.90-5.30); RED CELL DISTRIBUTION WIDTH 15.9 % (11.0-15.5)
[2016-06-08 17:12] LABS: ARTERIAL BLD GAS O2 SATURATION 90.6 % (90.0-100.0); ARTERIAL BLOOD GAS CARBOXY HB 0.2 %sat (0.0-9.0); ARTERIAL BLOOD GAS MET HB 1.2 %sat (0.0-2.0); ARTERIAL BLOOD GAS pH 7.427 (7.350-7.450)
[2016-06-08 17:13] LABS: ARTERIAL BLOOD GAS ALLEN TEST POS; ARTERIAL BLOOD GAS ART SITE RIGHT RADIAL; ARTERIAL BLOOD GAS DELIVERY NASAL CANNULA; ARTERIAL BLOOD GAS PCO2 59.2 mmHg (35.0-45.0); ARTERIAL BLOOD GAS PO2 65.8 mmHg (80.0-100); ARTERIAL DRAW? YES
[2016-06-09 17:25] LABS: HEMATOCRIT 35.1 % (35.0-45.0); HEMOGLOBIN 11.2 gm/dL (12.0-16.0); MEAN CELL VOLUME 83.7 FL (83-96); MEAN CORPUSCULAR HEMOGLOBIN 26.6 PG (28-34); MEAN CORPUSCULAR HGB CONC 31.8 g/dL (30-36); MEAN PLATELET VOLUME 8.6 FL (6.5-11.5); RED BLOOD COUNT 4.19 X10e (3.90-5.30); RED CELL DISTRIBUTION WIDTH 16.3 % (11.0-15.5); WHITE BLOOD COUNT 17.2 X10e3 (4.0-10.5)
[2016-06-09 18:03] LABS: BILIRUBIN,TOTAL 0.8 mg/dL (0.2-2.0); GLOM FILT RATE Estimated 56.7 mL/min (>60); POTASSIUM 4.3 mmol/L (3.5-5.1); PROTEIN TOTAL SERUM 6.4 g/dL (6.0-8.3)
[2016-06-09 18:04] LABS: CALCIUM SERUM 9.3 mg/dL (8.4-10.2)
[2016-06-10] MEDS ORDERED: ASPIRIN EC81 M1 PO (16:46)
[2016-06-10 16:48] LABS: URINE SOURCE CATH
[2016-06-10] MEDS ORDERED: PREDNISONE5 MG PO (16:48)
[2016-06-10] MEDS ORDERED: ALBUTEROL2.5 MG/3 M INH (16:50)
[2016-06-10] MEDS ORDERED: PAIN & FEVER325 MG PO (16:51)
[2016-06-10] MEDS ORDERED: BREO ELLIPTA 11 EACH INH (16:52)
[2016-06-10] MEDS ORDERED: PREDNISONE10 MG PO (16:54)
[2016-06-10 16:58] LABS: URINE APPEARANCE CLEAR; URINE BILIRUBIN NEG (NEG); URINE BLOOD NEG (NEG); URINE COLOR YELLOW; URINE GLUCOSE NEG (NEG); URINE KETONE NEG (NEG); URINE LEUKOCYTE ESTERASE NEG (NEG); URINE NITRATE NEG (NEG); URINE PH 6.5 (5-8); URINE PROTEIN NEG (NEG); URINE SPECIFIC GRAVITY 1.013 (1.003-1.035); URINE UROBILINOGEN 0.2 MG/DL (NEG)
== END 2016-06-10 17:58 | disposition home health service (06) | DRG 291 ==
LOC: CED 16:47 → CEDOF 19:26 → C3A PCU 21:08 → CICCU2 05-28 00:30 → C5B 05-29 02:21 → C3A PCU 06-09 17:50
PROVIDERS: Emergency Medicine; Hospitalist; Internal Medicine; Physician Assistant Medical
PROC: 05H433Z Insertion of Infusion Device into Left Innominate Vein, Percutaneous Approach (ICD-10-PCS; principal; 2016-06-01)
PROC: B54NZZA Ultrasonography of Left Upper Extremity Veins, Guidance (ICD-10-PCS; 2016-06-01)
DX: I11.0 Hypertensive heart disease with heart failure (principal); J96.01 Acute respiratory failure with hypoxia; E87.2 Acidosis; N39.0 Urinary tract infection, site not specified; J44.1 Chronic obstructive pulmonary disease with (acute) exacerbation; E11.9 Type 2 diabetes mellitus without complications; B96.89 Other specified bacterial agents as the cause of diseases classified elsewhere; Z68.41 Body mass index [BMI] 40.0-44.9, adult; I50.33 Acute on chronic diastolic (congestive) heart failure; E66.01 Morbid (severe) obesity due to excess calories; Z90.49 Acquired absence of other specified parts of digestive tract; G47.33 Obstructive sleep apnea (adult) (pediatric); D64.9 Anemia, unspecified; E03.9 Hypothyroidism, unspecified; E78.5 Hyperlipidemia, unspecified; Z87.891 Personal history of nicotine dependence; Z88.0 Allergy status to penicillin; Z86.010 Personal history of colon polyps; Z88.8 Allergy status to other drugs, medicaments and biological substances; Z79.82 Long term (current) use of aspirin
CPT/HCPCS: 36415; 36600; 70450; 71010; 76937; 80048; 80053; 80076; 81003; 82553; 82803; 82947; 83735; 83880; 84484; 85025; 85027; 87086; 87088; 87186; 87804; 93005; 94640; 94660; 94664; 94760; 94761; 97110; 97116; 97163; 97166; 97530; 97535; 99285; C1751; G8978-GP; G8979-GP; G8987-GO; G8988-GO; J0692; J0696; J0713; J1642; J1650; J1815; J1940; J2405; J2930; J3475

== ENCOUNTER 2016-08-02 18:03 | Inpatient (IN) | payer MEDICARE ==
--- NOTE | ~2016-08-02 | CR72 ---
[facility] A Service [facility] RADIOLOGY TEXT RESULTS PATIENT: JACQUIE CASAREZ LOCATION: [facility] : 35 UNIT #: [id number] AGE: [address]: Donis Sifuentes MD SEX: F ORDER DR: [id number] [facility] [address] [place], [place] [address] [id number] I MR#: [id number] Acc #: [id number] NAME: JACQUIE CASAREZ : 1935 SEX: F STUDY DATE/TIME: 08/04/2016 16:24 UNIT: [facility] ROOM: [facility] STUDY DESCRIPTION: CR Chest Single View Portable Attending Physician: Donis Sifuentes M.D. Ordering Physician: Bhavesh Cohen M.D. Primary Care Physician: Ed Gates M.D. MEDICAL IMAGING REPORT This report is preliminary unless electronic signature is present EXAM Portable chest. INDICATIONS Chest tube placement. DATE OF EXAM 08/04/2016 COMPARISON Earlier the same day. FINDINGS This portable view of the chest shows a stable right chest tube. The endotracheal tube is in pull-back slightly, so its tip is 3 cm above the jazmine. Central venous catheter has its tip in the superior vena cava. The left lung is reexpanded and for the most part with some left lower lobe atelectasis. The heart is mildly enlarged. Dictated by... Nacho Peralta M.D. THIS IS AN ELECTRONICALLY VERIFIED REPORT Nacho Peralta M.D. at 08/05/2016 11:36 AM ABRAHAM/ciera TD: 08/04/2016 18:21 JOB #: [id number] MEDICAL IMAGING REPORT [facility] A Service [facility] RADIOLOGY TEXT RESULTS PATIENT: JACQUIE CASAREZ LOCATION: [facility] : 35 UNIT #: [id number] AGE: [address]: Donis Sifuentes MD SEX: F ORDER DR: Page 1 of 1 COPY
--- NOTE | ~2016-08-02 | CO ---
Unit #: [id number] #: [id number] Patient: JACQUIE CASAREZ [id number] [address] [address] [id number] I MR#: [id number] NAME: JACQUIE CASAREZ ROOM: [facility] Age: 80 Sex: F Admission Date: 08/02/2016 : 1935 Attending Physician: Donis Sifuentes M.D. Primary Care Physician: Ed Gates M.D. Consultation Date: 08/03/2016 CONSULTATION REPORT HISTORY OF PRESENT ILLNESS Ms. Casarez is an 80-year-old white female with a history of COPD, chronic respiratory failure, SERA and multiple medical problems, who was admitted with resuscitated arrest. She was apparently found unresponsive and started CPR by a bystander, I think, her daughter. She presented to the emergency room. According to the ER note, she was unresponsive. No respirations. No PEA at the initial BMP findings. She was intubated and has been resuscitated and is in the intensive care unit. She has had an IJ line placed. She was noted to have some subcu air in the right chest and breast and a small right apical pneumothorax. Followup chest x-ray on the following morning had shown no change. She is unable to give any history obviously and I have attempted to call her daughter's home, but there was no answer there. PAST MEDICAL HISTORY 1. Chronic hypoxemic hypercarbic respiratory failure. 2. COPD. 3. Chronic diastolic congestive heart failure. 4. History of urinary tract infections. 5. Obstructive sleep apnea, maintained on CPAP. 6. Hypothyroidism. 7. Type 2 diabetes mellitus. 8. Chronic anemia. 9. She is a reformed smoker. 10. Hyperlipidemia. PAST SURGICAL HISTORY 1. Cholecystectomy. 2. Colonic polyps removed. 3. Upper GI endoscopy. ALLERGIES Penicillin, antihistamines, ethanolamine. FAMILY HISTORY No familial lung disease. SOCIAL HISTORY Reformed smoker. No alcohol or illicit drugs. Apparently, just moved into her daughter's house. REVIEW OF SYSTEMS Not possible as the patient is intubated and unresponsive. Unit #: [id number] #: [id number] Patient: JACQUIE CASAREZ PHYSICAL EXAMINATION GENERAL: Morbidly obese, white female, unresponsive to pain. Pupils are constricted, but reactive to light. VITAL SIGNS: Blood pressure is 141/75, pulse is 110, respiratory rate is 28, temperature 99.3. HEENT: Normocephalic atraumatic. Oral cavity; orally intubated. Nasal passage is patent. Posterior pharynx, small. NECK: Thick, supple. Trachea midline. No cervical or supraclavicular lymphadenopathy. Unable to feel any subcu air. Right IJ in place. LUNGS: Clear. CARDIAC: Regular rate and rhythm. Could not appreciate murmur, rub, or gallop. ABDOMEN: Nontender. Bowel sounds present. No hepatosplenomegaly. EXTREMITIES: Without clubbing, cyanosis, or edema. NEURO: As noted. SKIN: Warm and dry. DIAGNOSTIC STUDIES IMAGING STUDIES: Chest x-ray, personally reviewed. ET tube above jazmine, right IJ line, small right apical pneumothorax, silhouetting of left hemidiaphragm and left basilar opacity. Possible effusion or infiltrate. LABORATORY RESULTS: Arterial blood gases, pH 7.46, pCO2 of 41, pO2 of 86, on assist control of 20. PEEP of 5. Tidal volume 550, 50%. Creatinine of 2.2, baseline in June was 1. Potassium 3.4. AST, ALT and alkaline phosphatase 66, 168, and 94. Troponin 0.69. Lactic acid 2.8 this morning, was 4.7 on presentation. Procalcitonin 1.49. PT/INR is 1.2. White blood cell count 08985, hematocrit 30.7, platelet count normal. CARDIOVASCULAR STUDIES: EKG; shows sinus tach with PACs, right bundle, left anterior fascicular block. There is some T-wave inversion in the anterior leads. IMPRESSION 1. Resuscitated arrest. 2. Anoxic encephalopathy. 3. Underlying chronic obstructive pulmonary disease. 4. Chronic diastolic congestive heart failure. 5. Left lower lobe opacification, possible pneumonia, possible effusion. 6. Right apical pneumothorax, likely secondary to chest compressions and CPR, doubt related to internal jugular line. 7. History of obstructive sleep apnea, maintained on continuous positive airway pressure. 8. Anemia. 9. Hypertension. 10. Diabetes. 11. Hypothyroidism. 12. Acute kidney injury. PLAN 1. Vent support. Adjustment to maintain adequate oxygenation and ventilation. 2. Broad-spectrum antibiotics for possible left lower lobe pneumonia. 3. Also check urine to rule out urinary tract infection. 4. Cardiology to see to rule out [place], renal for acute renal failure. We will discontinue tobramycin given renal failure. Neuro to see. 5. DVT prophylaxis. 6. Monitor pneumothorax. Unit #: [id number] #: [id number] Patient: JACQUIE CASAREZ 7. Chest tube if worsens. Further recommendations pending this. Dictated by... Richy Hernandez M.D. GEMA/nereida TD: 08/04/2016 02:12 JOB #: [id number] CONSULTATION REPORT Page 1 of 1 X Richy Hernandez MD X CONSULTATION REPORT
--- NOTE | ~2016-08-02 | CT71 ---
[facility] Service of [facility] RADIOLOGY TEXT RESULTS PATIENT: JACQUIE CASAREZ [facility] UNIT #: [id number] AGE: [address]: Donis Sifuentes MD SEX: F ORDER DR: [id number] [facility] [address] [place], [place] [address] [id number] I MR#: [id number] Acc #: [id number] NAME: JACQUIE CASAREZ : 1935 SEX: F STUDY DATE/TIME: 08/02/2016 18:16 UNIT: [facility] ROOM: [facility] STUDY DESCRIPTION: CT Head Wo Contrast Attending Physician: Donis Sifuentes M.D. Ordering Physician: Efrain Sanchez M.D. Primary Care Physician: Ed Gates M.D. MEDICAL IMAGING REPORT This report is preliminary unless electronic signature is present EXAM CT brain without contrast HISTORY Found down today. Unresponsive. Hypotensive. This CT exam was performed with one or more of the following radiation dose reduction techniques: automatic exposure control, adjustment of mA and/or kV according to patient size, and iterative reconstruction. FINDING CT brain without contrast demonstrates mild chronic ischemic changes in the deep white matter bilaterally. Small chronic lacunar infarct in the right lentiform nucleus. No intracranial hemorrhage, mass or edema. No midline shift or ventricular dilatation or extraaxial fluid collection. Bilateral ethmoid and sphenoid sinusitis. IMPRESSION No acute findings. Dictated by... Roberto Corral M.D. THIS IS AN ELECTRONICALLY VERIFIED REPORT Roberto Corral M.D. at 08/02/2016 11:02 PM STEVEN/jayden TD: 08/02/2016 22:59 JOB #: [id number] [facility] of [facility] RADIOLOGY TEXT RESULTS PATIENT: JACQUIE CASAREZ [facility] : 35 UNIT #: [id number] AGE: [address]: Donis Sifuentes MD SEX: F ORDER DR: MEDICAL IMAGING REPORT Page 1 of 1 COPY
--- NOTE | ~2016-08-02 | CO ---
Unit #: [id number] #: [id number] Patient: JACQUIE CASAREZ [id number] [facility] [address]. [place], [place] [address] [id number] I MR#: [id number] NAME: JACQUEI CASAREZ ROOM: [facility] Age: 80 Sex: F Admission Date: 08/02/2016 : 1935 Attending Physician: Donis Sifuentes M.D. Primary Care Physician: Ed Gates M.D. Requesting Physician: Richy Hernandez M.D. Consultation Date: 08/03/2016 CONSULTATION REPORT REASON FOR CONSULTATION Anoxic encephalopathy. PATIENT IDENTIFICATION This is an 80-year-old, right-handed, female evaluated in room ICU 13 at [facility]. SOURCE OF INFORMATION Obtained from the patient's family as well as the medical record and nursing staff. HISTORY OF PRESENT ILLNESS This is an 80-year-old, right-handed, female with a past medical history of multiple medical issues who presented to [facility] with resuscitated arrest. She was apparently noted by family member to be unresponsive. Bystander CPR was started and then EMS continued CPR upon arrival. I am uncertain whether EMS intubated the patient initially. It does look as though the ED physician did intubate the patient orally once she was here. Full details are not known as the family member who was with the patient was not present. There are other family members present currently. It is uncertain whether the patient clearly was witnessed arrest or was found unresponsive. It was documented in the ER report that the patient was found unresponsive. The family states that the family member witnessed the arrest and started CPR immediately, though there was a comment made by nursing staff that they were told that the patient may have been down for a few minutes prior to initiating CPR as the patient was found unresponsive. Regardless, the patient is here, she is intubated, and she has not had any sedation. She has been hypotensive and has required Levophed. Her initial CT scan was unremarkable for any acute findings and did show delvalle-white matter differentiation. However, her exam is showing no response to noxious stimuli, no myoclonus, 0 out of 3 eye signs currently. The patient does have some spontaneous breaths on the vent, but is not consistently overbreathing the ventilator. The nurse reports no gag reflex. The family that is present report that when they last saw her a couple of weeks ago, she had not been complaining of any acute symptoms, though she does have a lot of chronic health conditions. Patient is unresponsive and unable to contribute to her review of systems currently. PAST MEDICAL HISTORY 1. She was discharged from this facility on June 10, 2016, for treatment of acute hypoxic hypercarbic respiratory failure and acute COPD exacerbation. 2. Chronic respiratory acidosis. Unit #: [id number] #: [id number] Patient: JACQUIE CASAREZ 3. Chronic respiratory failure. 4. COPD. 5. Chronic congestive heart failure. 6. History of urinary tract infection. 7. Obstructive sleep apnea. 8. Hypothyroidism. 9. Diabetes mellitus type 2. 10. Anemia. 11. Reformed smoker. 12. Hyperlipidemia. 13. Admission to [facility] in April of 2016 for change in mental status, toxic metabolic encephalopathy, acute on chronic hypercarbic hypoxic respiratory failure and acute COPD exacerbation. ALLERGIES 1. Penicillin. 2. Antihistamines. MEDICATIONS Home medications are still being reconciled by nursing. FAMILY HISTORY Not contributory to the presenting condition. SOCIAL HISTORY The patient lives with family members and requires around the clock care given her comorbid conditions. She has a history of tobacco use in the past. Apparently, she is a reformed smoker. No alcohol abuse or known illicit drug use. REVIEW OF SYSTEMS Unable to obtain from the patient given her physical and mental condition. PHYSICAL EXAMINATION VITAL SIGNS: Temperature 101.2, pulse 114, respirations 20, blood pressure 145/72. She has required Levophed as she was initially quite hypotensive. Oxygen saturation 100%; height 5 feet, 5 inches; weight 248 pounds; and BMI 39. NEUROLOGIC: She is unresponsive on the ventilator, 0 out of 3 eyes signs, and no response to anoxic stimuli. No sedation since arrival. She is intubated and, again, not sedated. CRANIAL NERVES: Unable to evaluate her thorpe of vision given her physical and mental status. Eyes appear to be conjugate, but she has negative doll's eyes. No ptosis, nystagmus, or roving eye movements seen. Again, as far as extraocular movements, she has negative doll's eyes. Unable to assess sensation of the face and scalp or strength of muscles of facial expression. No asymmetry seen. Corneals are negative. Pupil response is fixed. Neck is supple. Unable to assess head turning or shoulder shrug. MOTOR: No response to noxious stimuli. Patient has decreased tone. No rigidity appreciated. No myoclonus appreciated. SENSORY: No response to noxious stimuli. COORDINATION: Unable to assess. GAIT AND ROMBERG: Unable to assess. DIAGNOSTIC STUDIES IMAGING: CT of the head: Please see above. Negative for acute change. Unit #: [id number] #: [id number] Patient: JACQUIE CASAREZ LABORATORY: Blood cultures, preliminary, 1 out of 2 sets growing gram-positive cocci in clusters. Identification and sensitivity to follow. CK 292. Urinalysis abnormal with 3+ leuks, 1+ protein, 100 glucose, 3+ blood, innumerable white blood cells, 2+ bacteria, and a few squamous cells. Culture pending. TSH 1.79. Troponin 0.69. Initial troponin 0.52 and repeat troponin 0.60 and most recent troponin 0.69. Sodium 143, potassium 3.4, chloride 103, CO2 29, glucose 184, BUN 40, creatinine 2.2, estimated GFR 20.5, calcium 7.5. White blood cell count 26.7, hemoglobin 9.3, hematocrit 30.7, and platelet 312. Lactic acid 4.7. Other labs (1) are as per chart and have been reviewed. IMPRESSION 1. Anoxic hypoxic encephalopathy. 2. Acute respiratory failure. 3. Resuscitated arrest. 4. Hypotension. 5. Right pneumothorax, status post CPR. 6. Atrial fibrillation, intermittent. 7. COPD. 8. Positive blood cultures, 1 out of 2, growing gram-positive cocci in clusters. PLAN Patient has been and evaluated by Dr. Courtney at the time of this dictation, likely hypoxic/ischemic/anoxic encephalopathy. He discussed with the family regarding what appears to be a poor prognosis. They do want some time to discuss with family and go from there. He had ordered a repeat CT of the head, no contrast, and a urine drug screen. At this time, the presentation and evaluation does not appear to be consistent with acute CVA or RAIL LOADER infection or seizure, but more concerning for anoxic ischemic/hypoxic encephalopathy in a patient who is status post arrest. Will check CT scan. Further recommendations (2) pending workup and further clinical course. Please call for any questions or issues. We thank you very much for allowing us to assist in the care of this patient. Dictated by... Negin Land A.P.R.N. for Sanjuana Kasper/farooq TD: 08/04/2016 07:20 JOB #: [id number] CONSULTATION REPORT Page 1 of 1 X Negin Land EMERGENCY MEDICINE PHYSICIAN X CONSULTATION REPORT
--- NOTE | ~2016-08-02 | EKG ---
PATIENT: JACQUIE CASAREZ UNIT #: [id number] Ventricular Rate: 90 BPM Atrial Rate: 90 BPM P-R Interval: 204 ms QRS Duration: 138 ms Q-T Interval: 420 ms QTC Calculation(Bezet): 513 ms P [place] Pool: 78 degrees Calculated R [place] Pool: -60 degrees Calculated T [place] Pool: 58 degrees Diagnosis Line: Sinus rhythm with Premature atrial complexes Diagnosis Line: Right bundle branch block Diagnosis Line: Left anterior fascicular block Diagnosis Line: Bifascicular block Diagnosis Line: Abnormal ECG Diagnosis Line: When compared with ECG of 27-MAY-2016 16:57, Diagnosis Line: Premature atrial complexes are now Present Diagnosis Line: T wave inversion more evident in Anterior leads Diagnosis Line: Confirmed by KEN FERRARO, YOGESH ([id number]) on 08/02/2016 Diagnosis Line: 11:01:14 PM INTERPRETING MD: KEN FERRARO
--- NOTE | ~2016-08-02 | EKG ---
PATIENT: JACQUIE CASAREZ UNIT #: [id number] Ventricular Rate: 106 BPM Atrial Rate: 108 BPM P-R Interval: 176 ms QRS Duration: 136 ms Q-T Interval: 424 ms QTC Calculation(Bezet): 563 ms Calculated R [place]: -60 degrees Calculated T [place]: 98 degrees Diagnosis Line: Sinus tachycardia with Premature atrial complexes Diagnosis Line: Right bundle branch block Diagnosis Line: Left anterior fascicular block Diagnosis Line: Bifascicular block Diagnosis Line: Nonspecific ST and T wave abnormality Diagnosis Line: Abnormal ECG Diagnosis Line: When compared with ECG of 02-AUG-2016 17:51, Diagnosis Line: No significant change was found Diagnosis Line: Confirmed by MARIBEL PERES MD ([id number]) on Diagnosis Line: 08/03/2016 9:55:45 PM INTERPRETING MD: MAYANK
--- NOTE | ~2016-08-02 | CO ---
Unit #: [id number] #: [id number] Patient: MARCIA CASAREZ [id number] [address] [place], [place] [address] [id number] I MR#: [id number] NAME: MARCIA CASAREZ ROOM: [facility] Age: 80 Sex: F Admission Date: 08/02/2016 : 1935 Attending Physician: Donis Sifuentes M.D. Primary Care Physician: Ed Gates M.D. Consultation Date: 08/03/2016 CONSULTATION REPORT REASON FOR CONSULTATION Renal failure. Thank you very much for asking me to see this patient in consultation. HISTORY OF PRESENT ILLNESS Ms. Marcia Casarez is an 80-year-old female, who apparently had a full arrest requiring CPR, intubation upon presentation here. She was noted to have an increased BUN and creatinine 29 and 2.2 upon presentation last night. She was started on IV fluids, pressors, on the vent. BUN and creatinine today is 40 and 2.2. Because of this, I was asked to see the patient. The patient had decreased response currently on the vent. No family was able to be reached. Rest of her history is all from the chart. PAST MEDICAL HISTORY She has history of COPD, history of diastolic congestive heart failure, history of obstructive sleep apnea, history of diabetes mellitus, history of hypertension, history of anemia, history of hyperlipidemia, history of hypothyroidism. She is status post cholecystectomy. SOCIAL HISTORY Previous smoker, none now. Apparently, no alcohol. ALLERGIES Include penicillin and ethanolamine. MEDICINES AT HOME Include Synthroid 0.125 mg a day, she is on potassium 40 mEq a day, Protonix 40 mg b.i.d., she is on anastrozole 1 mg a day, Lasix 40 mg a day, gabapentin 300 mg t.i.d., verapamil 120 mg a day, Celexa 10 mg a day, Lopressor 12.5 mg b.i.d., Effexor 150 mg a day, she is on several inhalers, she is on aspirin 81 mg a day, and prednisone apparently 10 mg a day. REVIEW OF SYSTEMS Unable to obtain. FAMILY HISTORY Unable to obtain. PHYSICAL EXAMINATION GENERAL: She is intubated, decreased response. VITAL SIGNS: T-max is 98.1; pulse 81 to 110; blood pressure 61 to 161 over 30s to 80s, her blood pressure is greater than 100 systolic Unit #: [id number] #: [id number] Patient: MARCIA CASAREZ currently; she had 2862 in and only 141 out over the last shift. HEENT: Her pupils are equal and reactive to light. She is orally intubated. NECK: Supple. No adenopathy. CARDIAC: She has an irregular rhythm without a rub. No S3 or S4. LUNGS: Have bilateral rhonchi. ABDOMEN: Overweight. Bowel sounds positive. Nontender. EXTREMITIES: She has no significant lower extremity swelling. Her pulses are intact in lower extremities. JOINTS: No joint swelling. SKIN: No rashes. NEUROLOGIC: Again decreased response. : Riggins catheter is in place. MEDICATIONS She received vancomycin, several doses of tobramycin. She is on Azactam, Lovenox, insulin siding scale, propofol, Levophed, morphine, Ativan, Pepcid 20 mg daily, aspirin one a day. DIAGNOSTIC STUDIES LABORATORY RESULTS: Showed sodium 143, potassium 3.4 today down from 5.0, chloride is 103, bicarb is 29, BUN of 40, creatinine 2.2, glucose is 181, creatinine in June was 1.0, calcium 7.5. She has mild elevations of her liver function tests. Her ABG showed pH of 7.476, pCO2 of 42, pO2 of 87. This morning albumin is 21. Troponin 0.52 upon admission. Lactic acid 4.7. TSH 1.79. INR is 1.2. Hemoglobin is 9.3, white count of 26,700, platelets 312,000. Blood cultures are pending. IMAGING STUDIES: Chest x-ray consistent with a small pneumothorax post resuscitation and left lower lobe infiltrate and questionable effusion. ASSESSMENT AND PLAN 1. Acute kidney injury. This is a lady who has increased BUN and creatinine, decreased urine output, all again most likely related to her hypotension, arrest versus sepsis versus other. We will continue her normal saline for now. 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 Blood pressure is better. No indications for dialysis at this time. No significant fluid overload at this time. Again, we will continue IV fluids. We will check CPK to rule out rhabdomyolysis. We will check UA culture and sensitivity. Check a urine sodium. Again, I do think she could probably have acute tubular necrosis, but again we will rule out rhabdomyolysis. We will check a renal ultrasound to rule out any other pathology. Continue Riggins catheter. Continue fluids. We will check labs in the morning and we will continue to follow. 2. Respiratory failure, pneumonia/chronic obstructive pulmonary disease. 3. Atrial fibrillation with a history of diastolic congestive heart failure. Cardiology has been consulted. Mild increased troponin. 4. Diabetes mellitus. Thank you very much. Dictated by.Sruthi Fleming M.D. TERESA/nereida Unit #: [id number] #: [id number] Patient: MARCIA CASAREZ TD: 08/04/2016 04:06 JOB #: [id number] CONSULTATION REPORT Page 1 of 1 X Emily Fleming MD X CONSULTATION REPORT
--- NOTE | ~2016-08-02 | CR72 ---
[facility] A Service of [facility] RADIOLOGY TEXT RESULTS PATIENT: JACQUIE CASAREZ LOCATION: [address] : [birth year] UNIT #: [id number] AGE: [address]: Donis Sifuentes MD SEX: F ORDER DR: [id number] [facility] [address] [place], [place] [address] [id number] I MR#: [id number] Acc #: [id number] NAME: JACQUIE CASAREZ : 1935 SEX: F STUDY DATE/TIME: 08/02/2016 17:41 UNIT: [facility] ROOM: [facility] STUDY DESCRIPTION: CR Chest Single View Portable Attending Physician: Donis Sifuentes M.D. Ordering Physician: Efrain Sanchez M.D. Primary Care Physician: Ed Gates M.D. MEDICAL IMAGING REPORT This report is preliminary unless electronic signature is present EXAM Portable chest HISTORY Cardiopulmonary arrest. Intubation and shortness of air today. FINDINGS ETT tip is 2 cm above the jazmine. Patient is rotated to the left and there is probable consolidation or atelectasis in the left base, and there is a small left pleural effusion. Partial interval clearing of the right base compared to 06/01/2016. Persistent cardiac enlargement. Dictated by... Roberto Corral M.D. THIS IS AN ELECTRONICALLY VERIFIED REPORT Roberto Corral M.D. at 08/02/2016 11:01 PM DFL/psc TD: 08/02/2016 22:44 JOB #: [id number] MEDICAL IMAGING REPORT Page 1 of 1 COPY
--- NOTE | ~2016-08-02 | OR ---
Unit #: [id number] #: [id number] Patient: JACQUIE CASAREZ [id number] [address] [address] [id number] I MR#: [id number] NAME: JACQUIE CASAREZ ROOM: [facility] Date of Procedure: 08/04/2016 Admission Date: 08/02/2016 Surgeon: Lexa Diego M.D. : 1935 Attending Physician: Donis Sifuentes M.D. Primary Care Physician: Ed Gates M.D. PROCEDURE OPERATIVE NOTE PREOPERATIVE DIAGNOSIS Right pneumothorax; ischemic encephalopathy with the patient requiring ventilator support. POSTOPERATIVE DIAGNOSIS Right pneumothorax; ischemic encephalopathy with the patient requiring ventilator support. PROCEDURE PERFORMED Insertion of a #20 right trocar chest tube. ANESTHESIA Local 1% Xylocaine. ESTIMATED BLOOD LOSS About 3 mL. COMPLICATIONS None. PROCEDURE Patient was left in her intensive care unit bed. The right chest was elevated slightly. Right chest was then prepped with DuraPrep and draped in a sterile fashion. After adequate anesthesia had been obtained using local 1% Xylocaine, a small stab wound incision was made just slightly below the sixth intercostal space. A tonsil clamp was then passed per this incision with the subcutaneous tissue being spread in with the chest being entered through the sixth intercostal space. Following this, a #20 trocar chest tube was inserted and then directed toward the apex of the chest. The chest tube was sutured in place to the skin using 2-0 silk suture. It was then connected to a Pleur-evac. A cut 4 x 4 is placed around the chest tube and it was secured in place with tape. Estimated blood loss in the procedure was about 3 mL. The patient tolerated the procedure well. Dictated by... Sanjuana Alfaro/oksana Unit #: [id number] #: [id number] Patient: JACQUIE CASAREZ TD: 08/05/2016 07:32 JOB #: [id number] PROCEDURE OPERATIVE NOTE Page 1 of 1 X Lexa Diego MD X PROCEDURE OPERATIVE NOTE
--- NOTE | ~2016-08-02 | CR72 ---
[facility] A Service of [facility] RADIOLOGY TEXT RESULTS PATIENT: JACQUIE CASAREZ LOCATION: [address]13 : [birth year] UNIT #: [id number] AGE: [address]: Donis Sifuentes MD SEX: F ORDER DR: [id number] [facility] [address]. [place], [place] [address] [id number] I MR#: [id number] #: [id number] NAME: JACQUIE CASAREZ : 1935 SEX: F STUDY DATE/TIME: 08/03/2016 0:17 UNIT: [facility] ROOM: [facility] STUDY DESCRIPTION: CR Chest Single View Portable Attending Physician: Donis Sifuentes M.D. Ordering Physician: Donis Sifuentes M.D. Primary Care Physician: Ed Gates M.D. MEDICAL IMAGING REPORT This report is preliminary unless electronic signature is present EXAM AP portable chest 08/03/2016 00:17 HISTORY Shortness of breath. Possible pneumothorax on previous x-ray. Symptoms present for 2 days. COMPARISON AP portable chest 08/02/2016 19:09. FINDINGS Small right apical lateral pneumothorax persists and does not appear appreciably changed in size when compared to the 08/02/2016 examination. Right chest wall subcutaneous air appears stable. ET tube tip projects approximately 1.5 cm above the jazmine. Right IJ central line extends into the lower SVC. Stable mild cardiac enlargement. Dense consolidative type change in the left lower lobe with probable small left basilar pleural effusion unchanged. Mild right basilar atelectasis or infiltrate unchanged. IMPRESSION 1. Small right apical lateral pneumothorax is unchanged from 08/02/2016 at 19:09. 2. Dense consolidative type change and/or small left pleural effusion in the left base, unchanged from prior. 3. Stable mild right basilar atelectasis or infiltrate. Dictated by... Enid Richey M.D. [facility] A Service of [facility] RADIOLOGY TEXT RESULTS PATIENT: JACQUIE CASAREZ [address] [birth year] UNIT #: [id number] AGE: [address]: Donis Sifuentes MD SEX: F ORDER DR: THIS IS AN ELECTRONICALLY VERIFIED REPORT Enid Richey M.D. at 08/04/2016 10:01 PM CHILO/lucie TD: 08/03/2016 06:43 JOB #: [id number] MEDICAL IMAGING REPORT Page 1 of 1 COPY
--- NOTE | ~2016-08-02 | HP ---
Unit #: [id number] #: [id number] Patient: JACQUIE CASAREZ [id number] [address] [place], [place] [address] [id number] I MR#: [id number] NAME: JACQUIE CASAREZ ROOM: [facility] Age: 80 Sex: F Admission Date: 08/02/2016 : 1935 Attending Physician: Donis Sifuentes M.D. Primary Care Physician: Ed Gates M.D. HISTORY AND PHYSICAL CHIEF COMPLAINT Cardiopulmonary arrest. HISTORY OF PRESENTING ILLNESS The patient is an 80-year-old female who is very well known to me from previous admission. Patient was discharged on June 10, 2016 after having a lengthy stay from May 28 to June 10. The patient was supposed to be going to rehab but she did not have any days left from insurance point of view and she was sent home. Patient was doing okay. She was found unresponsive by family member, most likely her daughter, and daughter started CPR. EMS was called and CPR was continued during her transportation to ER. Patient was intubated in ER and was admitted in ICU. Patient was evaluated in room 13, ICU. Patient is not able to provide any history. Most of the history was taken from the patient's chart. As I understand, patient did not have any chest pain, no shortness of breath, no abdominal pain, no fever, chills or rigors or no other symptom prior to this event. She was pretty stable. PAST MEDICAL HISTORY 1. History of chronic respiratory failure. 2. History of COPD. 3. History of chronic diastolic congestive heart failure. History of obstructive sleep apnea. 4. History of hypothyroidism. 5. History of diabetes mellitus type 2. 6. History of hyperlipidemia. 7. Chronic anemia. 8. History of obesity. 9. Reformed smoker. PAST SURGICAL HISTORY 1. History of cholecystectomy. 2. History of EGD. 3. History of colonoscopy. ALLERGIES Penicillin and ethanolamine. SOCIAL HISTORY Patient lives at home with her son, has past history of smoking, quit a few years ago, no history of alcohol abuse or drug abuse. FAMILY HISTORY Unit #: [id number] #: [id number] Patient: JACQUIE CASAREZ Unremarkable. HOME MEDICATION As per med rec which has been reviewed at length. REVIEW OF SYMPTOMS As per history of presenting illness. PHYSICAL EXAMINATION GENERAL APPEARANCE: Patient intubated in ICU bed 13. Patient is not responsive on sedation. HEENT: Head is normocephalic. NECK: Neck is supple. Trachea is in midline. No lymphadenopathy. CHEST: Has fair air entry, decreased at the bases. CVS: S1, S2 positive, regular rhythm. Heart sounds are distant. ABDOMEN: Abdomen is obese, soft. Bowel sounds are positive. EXTREMITIES: Pedal pulses are palpable. Trace pedal edema. 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 DIAGNOSTIC STUDIES LABORATORY: Workup shows glucose 184, BUN 40, creatinine 2.2, potassium 3.4, sodium 143, calcium 7.5, AST 366, ALT 168, lactic acid 2.8, TSH 1.79, WBC 26.7, hemoglobin 9.3. Urinalysis shows 3+ leukocyte esterase. IMAGING: Chest x-ray right pneumothorax, right chest wall subcutaneous areas unchanged. Suspected consolidation in the left lower lobe. CARDIOVASCULAR: EKG sinus rhythm with frequent premature atrial complexes, right bundle branch block. ASSESSMENT Patient is being admitted to ICU with diagnoses of: 1. Status post resuscitated cardiopulmonary arrest. 2. Acute respiratory failure, on ventilator support. 3. Anoxic/hypoxic encephalopathy. 4. Hypotension. 5. Intermittent atrial fibrillation. 6. Elevated troponin, possibly secondary to cardiopulmonary resuscitation. 7. Acute renal failure, possible acute tubular necrosis or secondary to sepsis. 8. Right pneumothorax. 9. Probable pneumonia. 10. Chronic obstructive pulmonary disease. 11. Hypomagnesemia. PLAN Plan is admit to ICU. Dr. Ram has been consulted from cardiac point of view. Patient has been placed on amiodarone and Lovenox. Patient is going to get aspirin per rectum. Echocardiogram is being ordered. Neurology was consulted. I discussed with Dr. Courtney. Prognosis is poor as per Neurology. CT scan of the head will be repeated. Pulmonary is being consulted for probably pneumonia and for vent management. Supportive measures will be started. Dr. Fleming will be consulted for acute renal failure. Please refer to progress note for further orders. Family is aware of the patient's poor condition and poor prognosis. Unit #: [id number] #: [id number] Patient: JACQUIE CASAREZ Dictated by Sanjuana Almeida TD: 08/04/2016 15:16 JOB #: [id number] HISTORY AND PHYSICAL Page 1 of 1 X Haydee Ontiveros MD HISTORY AND PHYSICAL
--- NOTE | ~2016-08-02 | CO ---
Unit #: [id number] #: [id number] Patient: MARCIA CASAREZ [id number] [address] [address] [id number] I MR#: [id number] NAME: MARCIA CASAREZ ROOM: [facility] Age: 80 Sex: F Admission Date: 08/02/2016 : 1935 Attending Physician: Donis Sifuentes M.D. Primary Care Physician: Ed Gates M.D. Requesting Physician: Richy Hernandez M.D. CONSULTATION REPORT REASON FOR CONSULT Enlarging right pneumothorax. HISTORY OF PRESENT ILLNESS Ms. Casarez is an 80-year-old female with cardiac arrest found down at home. CPR initiated and completed by daughter. She was brought in by EMS, intubated in the emergency room but the patient has never regained consciousness. CAT scans have revealed anoxic encephalopathy status post cardiac arrest. The patient has small right pneumothorax which noted on admission and, over the last day and a half, this right pneumothorax has enlarged. The patient is currently on the ventilator, intubated orally, FIO2 50%, AC of 18, respiratory rate 18, tidal volume [address] P[address] of 5. Dr. Hernandez has requested a chest tube to be placed by Dr. Lexa Diego. PAST MEDICAL HISTORY 1. Hypercarbic respiratory failure. 2. Acute exacerbation of COPD. 3. CHF. 4. UTI. 5. Hypothyroidism. 6. Diabetes mellitus. 7. Anemia. 8. Record of metabolic encephalopathy admitted in April of 2016. SURGICAL INTERVENTIONS 1. Cholecystectomy. 2. EGD and colonoscopy. MEDICATION ALLERGIES Penicillin, antihistamines, ethanolamine MEDICATIONS 1. Glucerna. 2. Vancomycin. 3. Famotidine. 4. Lovenox. 5. DuoNeb. 6. Mini neb. 7. Aspirin. 8. Zosyn. REVIEW OF SYSTEMS Unobtainable related to patient's intubation. Unit #: [id number] #: [id number] Patient: MARCIA CASAREZ PHYSICAL EXAMINATION GENERAL APPEARANCE: Ms. Casarez is an 80-year-old morbidly obese female nonresponsive to verbal or tactile stimulation. No facial asymmetry. VITAL SIGNS: Temperature 99.7. Heart rate 94. Respiratory rate 19. Blood pressure 124/55. NECK: Supple. Trachea midline. No thyromegaly. LUNGS: Auscultation of her lungs found them to be clear but decreased throughout with a few crackles. CARDIOVASCULAR: S1, S2 without rub, without murmur. No S3 or S4. No peripheral edema. She is in atrial fibrillation. ABDOMEN: Large, found, pendulous. Bowel sounds positive. Nontender. No pulsatile masses or hepatosplenomegaly. EXTREMITIES: She has 2+ edema in her feet. DIAGNOSTIC STUDIES LABORATORY: BUN 51, creatinine 2.8, sodium 131, potassium 3.8, magnesium 1.6. Hemoglobin 9.3, hematocrit 30.1, platelets 294. WBC 24 which is up from 17 yesterday. IMAGING: CT without contrast shows that there are new hypodensities noted within the bilateral globus pallidi. Involving infarct cannot be excluded in these locations. 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 There are also microvascular disease changes. IMPRESSION 1. Anoxic encephalopathy status post cardiac arrest. The patient has been evaluated by Neurology, Dr. Courtney. 2. Atrial fibrillation. 3. Right pneumothorax, enlarging. PLAN Discussed with family, Ms. Marcia Casarez, who is the patient's daughter DNR status. They do not want the patient made a DNR as they have family from out of town that are coming in. They do want the chest tube placed. She has given verbal consent and two people have signed for that consent for placement of a right chest tube today by Dr. Lexa Diego. Dictated by... Ever David/angel TD: 08/04/2016 14:13 JOB #: [id number] CONSULTATION REPORT Page 1 of 1 X Jennifer Guido APRN X CONSULTATION REPORT
--- NOTE | ~2016-08-02 | CO ---
Unit #: [id number] #: [id number] Patient: MARCIA CASAREZ [id number] [address] [address] [id number] I MR#: [id number] NAME: MARCIA CASAREZ ROOM: [facility] Age: Sex: F Admission Date: 08/02/2016 : 1935 Attending Physician: Donis Sifuentes M.D. Primary Care Physician: Ed Gates M.D. Consultation Date: 08/04/2016 CONSULTATION REPORT ADDENDUM Mrs. Marcia Casarez is an 80-year-old female who was found down in cardiac arrest at home and CPR was started by a bystander. Although they were able to restore a pulse and blood pressure, the patient never regained consciousness. Her family is presently trying to decide about her code status in view of her metabolic encephalopathy. She is presently in the intensive care unit on a ventilator and her last chest x-ray showed a right pneumothorax to be present. In view of this, we were asked to see the patient for placement of a chest tube. I plan, therefore, to proceed with placement of a #20 right chest tube. It should also be stated that I agree with the evaluation and plan as documented by my nurse practitioner, Jennifer Guido, in her consultation on this patient. Dictated by... Lexa Diego M.D. MICHELLE/farooq TD: 08/05/2016 08:09 JOB #: [id number] CONSULTATION REPORT Page 1 of 1 X Lexa Diego MD X CONSULTATION REPORT
--- NOTE | ~2016-08-02 | EKG ---
PATIENT: JACQUIE CASAREZ UNIT #: [id number] Ventricular Rate: 105 BPM Atrial Rate: 110 BPM P-R Interval: 182 ms QRS Duration: 128 ms Q-T Interval: 356 ms QTC Calculation(Bezet): 470 ms P [place]: 83 degrees Calculated R [place]: -64 degrees Calculated T [place]: 99 degrees Diagnosis Line: Sinus tachycardia with Premature atrial complexes Diagnosis Line: Right bundle branch block Diagnosis Line: Left anterior fascicular block Diagnosis Line: Bifascicular block Diagnosis Line: Abnormal ECG Diagnosis Line: When compared with ECG of 03-AUG-2016 01:03, Diagnosis Line: T wave inversion no longer evident in Anterior Diagnosis Line: leads Diagnosis Line: QT has shortened Diagnosis Line: Confirmed by MALLORY FERRARO, LIBERTY ([id number]) on Diagnosis Line: 08/05/2016 3:38:50 PM INTERPRETING MD: ROGELIO
--- NOTE | ~2016-08-02 | CR72 ---
[facility] A Service of [facility] RADIOLOGY TEXT RESULTS PATIENT: JACQUIE CASAREZ LOCATION: [address]13 : 35 UNIT #: [id number] AGE: [address]: Donis Sifuentes MD SEX: F ORDER DR: [id number] [facility] [address] [facility] [address] [place], [place] [address] [id number] I MR#: [id number] Acc #: [id number] NAME: JACQUIE CASAREZ : 1935 SEX: F STUDY DATE/TIME: 08/04/2016 4:37 UNIT: [facility] ROOM: [facility] STUDY DESCRIPTION: CR Chest Single View Portable Attending Physician: Donis Sifuentes M.D. Ordering Physician: Octavio Hernandez Primary Care Physician: Ed Gates M.D. MEDICAL IMAGING REPORT This report is preliminary unless electronic signature is present EXAM AP portable chest Date: 08/04/2016 at 04:37 HISTORY Respiratory failure. Symptoms present for 2 days. Status post cardiopulmonary arrest. Follow up right side pneumothorax. COPD. Diabetes. Anemia. Congestive heart failure. Smoking history. COMPARISON AP portable chest 08/03/2016 FINDINGS The right side pneumothorax is slightly larger than yesterday's study. It would estimate it is 15% volume. I have contacted the patient's nurse with regards to this finding prior to the time of this dictation, and either contemplation of chest tube placement or short-term chest radiograph followup would be recommended. There is a persistent or increasing right basilar atelectasis or infiltrate. Left basilar consolidation in the retrocardiac region unchanged. Stable cardiac enlargement. ET tube, right IJ central line, Dobbhoff tube appears stable. Stable right chest wall subcutaneous air. Dictated by... Enid Richey M.D. THIS IS AN ELECTRONICALLY VERIFIED REPORT Enid Richey M.D. at 08/04/2016 9:58 PM LL/yadi [facility] A Service of [facility] RADIOLOGY TEXT RESULTS PATIENT: JACQUIE CASAREZ LOCATION: [facility]3-13 : 35 UNIT #: [id number] AGE: [address]: Donis Sifuentes MD SEX: F ORDER DR: TD: 08/04/2016 06:26 JOB #: [id number] MEDICAL IMAGING REPORT Page 1 of 1 COPY
--- NOTE | ~2016-08-02 | CR72 ---
[facility] A Service of [facility] & [facility] RADIOLOGY TEXT RESULTS PATIENT: JACQUIE CASAREZ LOCATION: [address]-13 : 35 UNIT #: [id number] AGE: [address]: Donis Sifuentes MD SEX: F ORDER DR: [id number] [facility] [address] [place], [place] [address] [id number] I MR#: [id number] Acc #: [id number] NAME: JACQUIE CASAREZ : 1935 SEX: F STUDY DATE/TIME: 08/05/2016 3:06 UNIT: [facility] ROOM: [facility] STUDY DESCRIPTION: CR Chest Single View Portable Attending Physician: Donis Sifuentes M.D. Ordering Physician: Richy Hernandez M.D. Primary Care Physician: Ed Gates M.D. MEDICAL IMAGING REPORT This report is preliminary unless electronic signature is present EXAM AP portable chest 08/05/2016 HISTORY Respiratory failure with pneumonia. Chest tube placement on 08/04/2016. Status post cardiopulmonary arrest. Symptoms began 08/02/2016. COMPARISON AP portable chest 08/04/2016. FINDINGS Single right chest tube, right IJ central line, Dobbhoff tube, ET tube appear unchanged. No pneumothorax is seen. Mild right chest wall subcutaneous air, unchanged. Left basilar atelectasis/infiltrate with probable small layering left pleural effusion unchanged. There is minimal right basilar atelectasis which appears new. Stable cardiomegaly. IMPRESSION 1. Development of mild right basilar atelectasis. Left basilar atelectasis/consolidation and small left pleural effusion is stable. 2. No visible pneumothorax. Dictated by... Enid Richey M.D. THIS IS AN ELECTRONICALLY VERIFIED REPORT Enid Richey M.D. at 08/05/2016 10:05 PM CHILO/lucie TD: 08/05/2016 09:47 JOB #: [id number] [facility] A Service of [facility] & [facility] RADIOLOGY TEXT RESULTS PATIENT: JACQUIE CASAREZ LOCATION: [facility]3 CICCU3-13 : 35 UNIT #: [id number] AGE: [address]: Donis Sifuentes MD SEX: F ORDER DR: MEDICAL IMAGING REPORT Page 1 of 1 COPY
--- NOTE | ~2016-08-02 | CR7 ---
[facility] A Service of [facility] & [facility] RADIOLOGY TEXT RESULTS PATIENT: JACQUIE CASAREZ LOCATION: [address]3-13 : 35 UNIT #: [id number] AGE: [address]: Donis Sifuentes MD SEX: F ORDER DR: [id number] [facility] [address] [facility]. [place], [place] [address] [id number] I MR#: [id number] Acc #: [id number] NAME: JACQUIE CASAREZ : 1935 SEX: F STUDY DATE/TIME: 08/03/2016 13:37 UNIT: [facility] ROOM: [facility] STUDY DESCRIPTION: CR Abdomen Single AP View Attending Physician: Donis Sifuentes M.D. Primary Care Physician: Ed Gates M.D. MEDICAL IMAGING REPORT This report is preliminary unless electronic signature is present EXAM Supine abdomen, 1 view, 08/03/2016 HISTORY Dobbhoff tube placement today. COMPARISON None. FINDINGS Distal weighted tip of the Dobbhoff tube is in the mid stomach. Dictated by... Ashu Vernon M.D. THIS IS AN ELECTRONICALLY VERIFIED REPORT Ashu Vernon M.D. at 08/10/2016 10:45 AM TEV/aa TD: 08/03/2016 14:25 JOB #: [id number] MEDICAL IMAGING REPORT Page 1 of 1 COPY
--- NOTE | ~2016-08-02 | CR72 ---
[facility] A Service of [facility] & [facility] RADIOLOGY TEXT RESULTS PATIENT: JACQUIE CASAREZ LOCATION: [address]3-13 : 35 UNIT #: [id number] AGE: [address]: Donis Sifuentes MD SEX: F ORDER DR: [id number] [facility] [address] [place], [place] [address] [id number] I MR#: [id number] Acc #: [id number] NAME: JACQUIE CASAREZ : 1935 SEX: F STUDY DATE/TIME: 08/03/2016 4:56 UNIT: [facility] ROOM: [facility] STUDY DESCRIPTION: CR Chest Single View Portable Attending Physician: Donis Sifuentes M.D. Ordering Physician: Reji Jeff M.D. Primary Care Physician: Ed Gates M.D. MEDICAL IMAGING REPORT This report is preliminary unless electronic signature is present EXAM AP portable chest 08/03/2016 HISTORY Shortness of breath with respiratory failure. On the ventilator. Symptoms began 08/02/2016. History of diabetes. Obesity. COPD. Hypertension. Previous smoking history. COMPARISON AP portable chest 08/03/2016 at 00:17. FINDINGS Small right apical lateral pneumothorax does not appear appreciably changed since the study performed earlier today. ET tube tip remains approximately 1.5 cm above the level of the jazmine. Right IJ central line extends into the mid SVC. Patient is rotated toward the left. Suspected left lower lobe consolidation or atelectasis, unchanged. Small left pleural effusion may be present, as well. Mild right basilar atelectasis or infiltrate unchanged. IMPRESSION 1. Stable small right pneumothorax. Right chest wall subcutaneous air is unchanged. 2. Suspected consolidation in the left lower lobe with small left pleural effusion, mild right basilar atelectasis/infiltrate without significant change from earlier today. Dictated by... Enid Richey M.D. THIS IS AN ELECTRONICALLY VERIFIED REPORT Enid Richey M.D. at 08/04/2016 9:59 PM STS. [facility] A Service of [facility] & [facility] RADIOLOGY TEXT RESULTS PATIENT: JACQUIE CASAREZ LOCATION: [facility] CICCU3-13 : 35 UNIT #: [id number] AGE: [address]: Donis Sifuentes MD SEX: F ORDER DR: CHILO/lucie TD: 08/03/2016 08:35 JOB #: [id number] MEDICAL IMAGING REPORT Page 1 of 1 COPY
--- NOTE | ~2016-08-02 | CO ---
Unit #: [id number] #: [id number] Patient: JACQUIE CASAREZ [id number] [facility] [place] [facility]. [place], [place] [address] [id number] I MR#: [id number] NAME: JACQUIE CASAREZ ROOM: [facility]3 Age: 80 Sex: F Admission Date: 08/02/2016 : 1935 Attending Physician: Donis Sifuentes M.D. Primary Care Physician: Ed Gates M.D. Consultation Date: 08/03/2016 CONSULTATION REPORT REASON FOR CONSULTATION Cardiopulmonary resuscitated arrest. HISTORY OF PRESENT ILLNESS This is an 80-year-old white female, who has a history of diabetes mellitus, hypertension, hyperlipidemia, COPD, obstructive sleep apnea, chronic anemia, chronic diastolic congestive heart failure, obesity, and having a right bundle-branch block on EKG, who came to the emergency room from home after having a cardiopulmonary arrest. Currently, there is no family at the bedside and unable to obtain any information from them, but information obtained from the medical record chart and staff. The patient went down at home where she lives with her daughter. Her daughter said she had seen her about 5 minutes prior to the event. She started CPR and called the EMS. They took a few minutes to arrive. They continued CPR. They did say she was in [place]. There was no information obtained at this time on what drug she did receive during the resuscitation efforts prior to arriving at [facility]. According to the information from the family, there were no reports of any chest pain or pain in her neck, bilateral jaws, shoulders, arms or elbow. There is no dizziness or presyncope or syncopal episodes. In the emergency room, the patient's blood pressure was first documented at 123/84 mmHg, heart rate was 104. She was in sinus rhythm and sinus tach with frequent PACs. It was then later documented that her blood pressure decreased down to 60/32. She was started on Levophed drip per protocol. She received a liter of normal saline. Her chest x-ray showed a small right pneumothorax and a consolidation in the left lower lobe and a small left pleural effusion and mild right infiltrate. Her EKG showed sinus rhythm with premature atrial contractions, right bundle-branch block, left anterior fascicular block. There are also T-wave inversions in the anterior leads. The patient's initial labs; her initial troponin was 0.11, later 0.52, today it is peaked at 0.69. LFTs are elevated. Creatinine is up to 2.2. WBCs are 26.7 and hemoglobin down to 9.3. She has been treated likely for possible pneumonia. Pulmonology, Dr. Hernandez, is managing her ventilation and her pulmonary care. Nephrology has been consulted for acute renal failure. Cardiology has been consulted to assist with evaluation and management. It was also noted that the patient's telemetry showing some burst of what appears to be atrial fibrillation with rapid ventricular response and then she will go back in sinus rhythm with PACs. Cardiology consult to assist with evaluation and management. Looking back on previous records, she had a stress echo back in 2002, but nothing recently here at [facility]. Unit #: [id number] #: [id number] Patient: JACQUIE CASAREZ PAST MEDICAL HISTORY 1. Diabetes mellitus, type 2. 2. Hypertension. 3. Hyperlipidemia. 4. COPD, obstructive sleep apnea. 5. Hypothyroidism. 6. Chronic anemia. 7. Chronic diastolic congestive heart failure. 8. In 2002, had a stress echo; no ischemia. Diastolic dysfunction and mild mitral regurgitation. Normal LV function. 9. History of right bundle-branch block on EKG. 10. Obesity, weight 248 pounds. 11. Reformed smoker. PAST SURGICAL HISTORY 1. Cholecystectomy. 2. EGD. 3. Colonoscopy. HOME MEDICATIONS These were which she was on when she was discharged on 06/10/2016 here from [facility]. They would need to be updated. Aspirin 81 mg p.o. daily, Protonix 40 mg p.o. b.i.d., potassium 40 mEq p.o. daily, Synthroid 125 mcg p.o. daily, Arimidex 1 mg p.o. daily, Lopressor 12.5 mg p.o. every 12 hours, Breo inhalation as ordered, furosemide 40 mg p.o. b.i.d., lovastatin 40 mg p.o. at bedtime, nebulizer with albuterol and ipratropium q.i.d., Tylenol 650 mg every 6 hours p.r.n., Neurontin 300 mg p.o. t.i.d., Celexa 10 mg p.o. daily, Effexor 150 mg p.o. daily. ALLERGIES Penicillin and ethanolamine. SOCIAL HISTORY The patient lives at home with her son. She has a past history of smoking, quit some time ago. No alcohol or illicit drug abuse. FAMILY HISTORY Unable to obtain. REVIEW OF SYSTEMS See details in HPI. PHYSICAL EXAMINATION GENERAL: Ms. Casarez is an 80-year-old white female. She is intubated, poorly responsive. She is not on sedation. NECK: Trachea midline. No thyromegaly or lymphadenopathy. Normal carotid upstrokes. No jugular venous distention. HEART: S1, S2. Regular rate and rhythm. Distant heart sounds noted. LUNGS: Diminished and hard to auscultate due to ventilator sounds. ABDOMEN: Obese, soft. Positive bowel sounds present. EXTREMITIES: Pedal pulses are palpable. Trace pedal edema. DIAGNOSTIC DATA LABORATORY RESULTS: Today's labs; ABGs, pH of 7.476, pCO2 of 41.7, pO2 is 86.7, O2 sats 94.8. Glucose is 184, BUN 40, creatinine 2.2, eGFR is 20.5, sodium 143, potassium is 3.4, chloride 103, CO2 of 29, calcium is 7.5, total protein 6.3, albumin 2.1, bilirubin total 0.7, AST is up to Unit #: [id number] #: [id number] Patient: JACQUIE CASAREZ 366, ALT 168, and alkaline phosphatase is 94. Lactic acid is 2.8. TSH is 1.79. WBC is up to 26.7, hemoglobin 9.3, hematocrit 30.7, platelets are 312. Initial cardiac enzymes; CK-MB is 2.4, troponin is 0.05, CK-MB 9.0, troponin 0.11. Today's cardiac enzymes; CK total is 8 with troponin 0.69. Urinalysis shows 3+ leukocyte esterase, 1+ protein, 100 glucose, 0.2 urobilinogen, 3+ blood, enumerable wbc's, and 2+ bacteria. Urine and blood cultures pending. IMAGING STUDIES: Latest chest x-ray, done this morning, shows stable small right pneumothorax, right chest wall subcutaneous air is unchanged, suspected consolidation in the left lower lobe with a small left pleural effusion, mild right bibasilar atelectasis/infiltrate. CARDIOVASCULAR STUDIES: EKG shows sinus rhythm with frequent premature atrial complexes, right bundle-branch block, ventricular rate 90 beats per minute, left anterior fascicular block. IMPRESSION 1. Status post resuscitated cardiopulmonary arrest. 2. Hypotension, which is resolved. 3. Anoxic encephalopathy. 4. Right pneumothorax, questionable pneumonia. 5. Hypokalemia. 6. Elevated troponin, peaked at 0.69. 7. Intermittent atrial fibrillation. 8. Diabetes mellitus, history of hypertension. 9. Hyperlipidemia. 10. Hypothyroidism. 11. Chronic anemia. 12. Chronic diastolic congestive heart failure. 13. History of right bundle-branch block on EKG. 14. Obesity, weight 248 pounds. 15. Reformed smoker. PLAN 1. Cardiology consult to assist with evaluation and management. 2. As far as her elevated troponin could be secondary to CPR and hypotension, we will discuss with the daughter any information she may have recent ischemic heart disease workup. 3. The patient is on aspirin suppository and on a daily dose of Lovenox. 4. The patient is having runs of what appears to be intermittent atrial fibrillation. We will start her on amiodarone to try to maintain normal sinus rhythm. 5. Obtain a 2D echo to evaluate LV function and valves. 6. Add lipid profile to labs. 7. Nephrology is managing and supplementing potassium. 8. Pulmonology is treating for probable pneumonia. I also ordered to hold sedation once Dr. Courtney to see the patient to evaluate for anoxic encephalopathy. 9. On exam, there does not appear to be any signs or symptoms of acute congestive heart failure. 10. Continue supportive measures. 11. Further recommendations pending per Dr. Daniels. Thank you very much for allowing us to assist in the care. Unit #: [id number] #: [id number] Patient: JACQUIE CASAREZ Dictated by... Ever Brewer/nereida TD: 08/03/2016 14:58 JOB #: [id number] CONSULTATION REPORT Page 1 of 1 X Marcia Real APRN CONSULTATION REPORT
--- NOTE | ~2016-08-02 | CR72 ---
[facility] A Service of [facility] & [facility] RADIOLOGY TEXT RESULTS PATIENT: JACQUIE CASAREZ LOCATION: [address]13 : 35 UNIT #: [id number] AGE: [address]: Donis Sifuentes MD SEX: F ORDER DR: [id number] [facility] [address] [place], [place] [address] [id number] I MR#: [id number] Acc #: [id number] NAME: JACQUIE CASAREZ : 1935 SEX: F STUDY DATE/TIME: 08/02/2016 19:09 UNIT: [facility] ROOM: [facility] STUDY DESCRIPTION: CR Chest Single View Portable Attending Physician: Donis Sifuentes M.D. Ordering Physician: Efrain Sanchez M.D. Primary Care Physician: Ed Gates M.D. MEDICAL IMAGING REPORT This report is preliminary unless electronic signature is present EXAM Portable AP view of the chest COMPARISON August 02, 2016 at 05:41 p.m. and June 01, 2016 and 06:07 p.m. INDICATION 80-year-old female. Central venous line placement. Dyspnea today. Respiratory failure requiring endotracheal intubation. FINDINGS AND IMPRESSION Endotracheal tube tip terminates approximately 02.9 cm above the jazmine. There is a right internal jugular catheter with the tip terminating in the mid SVC. There is grossly stable subcutaneous emphysema in the right chest wall and breast. Evaluation of the right chest is limited by overlapping percutaneous defibrillator pad. There is artifact from the scapula overlying the right pulmonary apex. There is minimal band-like opacity right lung base most acute of atelectasis. Confluent opacification of the left lower chest appears grossly stable but may be accentuated by patient rotation. Left basilar atelectasis, pneumonia and/or pleural effusion cannot be excluded. Cardiomediastinal silhouette is grossly stable but not well evaluated, also due to patient rotation. Actually there is favored to be a small right apical pneumothorax which is limited evaluation due to the patient's overlapping scapula but this is favored to be real. This may not be appreciably changed from earlier today. Dictated by... Dakota Tsai M.D. [facility] A Service of [facility] & [facility] RADIOLOGY TEXT RESULTS PATIENT: JACQUIE CASAREZ LOCATION: [facility]3-13 : 35 UNIT #: [id number] AGE: [address]: Donis Sifuentes MD SEX: F ORDER DR: THIS IS AN ELECTRONICALLY VERIFIED REPORT Dakota Tsai M.D. at 08/05/2016 4:21 PM HARMEET/jayden TD: 08/03/2016 00:00 JOB #: [id number] MEDICAL IMAGING REPORT Page 1 of 1 COPY
--- NOTE | ~2016-08-02 | CT71 ---
[facility] A Service of [facility] & [facility] RADIOLOGY TEXT RESULTS PATIENT: JACQUIE CASAREZ LOCATION: [address]-13 : 35 UNIT #: [id number] AGE: [address]: Donis Sifuentes MD SEX: F ORDER DR: [id number] [facility] [address] [place], [place] [id number] I MR#: [id number] Acc #: [id number] NAME: JACQUIE CASAREZ : 1935 SEX: F STUDY DATE/TIME: 08/03/2016 21:41 UNIT: [facility] ROOM: [facility] STUDY DESCRIPTION: CT Head Wo Contrast Attending Physician: Donis Sifuentes M.D. Ordering Physician: Gayathri Courtney M.D. Primary Care Physician: Ed Gates M.D. MEDICAL IMAGING REPORT This report is preliminary unless electronic signature is present EXAM Noncontrast CT head. DATE: 08/03/2016 HISTORY Respiratory failure since 08/02/2016. Unresponsive. On the ventilator. Additional history of asthma, COPD, reflux, arthritis, cardiomyopathy. COMPARISON CT head without contrast 08/02/2016. This CT exam was performed with one or more of the following radiation dose reduction techniques: automatic exposure control, adjustment of mA and/or kV according to patient size, and iterative reconstruction. FINDINGS Patient is orally intubated. New or increased hypodensities are demonstrated within the bilateral basal ganglia, predominately within the globus pallidi. Evolving infarcts cannot be completely excluded. Scattered hypodensities elsewhere within the deep white matter of the brain are nonspecific but are favored to represent changes of chronic microvascular disease. A more chronic lacunar infarct in the right basal ganglia is unchanged from 08/02/2016. Ventricular configuration is within normal limits. Patient is nasally intubated on the left. Extensive paranasal sinus mucosal thickening predominately in the ethmoid and sphenoid sinuses. Mastoid air cells appear clear. No displaced calvarial fracture is identified. No acute intracranial hemorrhage, mass lesion, mass effect or midline shift is seen. IMPRESSION 1. New hypodensities are demonstrated within the bilateral globus STS. [facility] A Service of [facility] & [facility] RADIOLOGY TEXT RESULTS PATIENT: JACQUIE CASAREZ LOCATION: [facility]3-13 : 35 UNIT #: [id number] AGE: [address]: Donis Sifuentes MD SEX: F ORDER DR: mu. Evolving infarcts cannot be excluded at those locations. 2. Chronic-appearing lacunar infarct in the right basal ganglia is unchanged from 08/02/2016. 3. Chronic microvascular disease changes elsewhere within the deep white matter. 4. No acute intracranial hemorrhage. Dictated by... Enid Richey M.D. THIS IS AN ELECTRONICALLY VERIFIED REPORT Enid Richey M.D. at 08/04/2016 9:59 PM CHILO/jayden TD: 08/03/2016 22:55 JOB #: [id number] MEDICAL IMAGING REPORT Page 1 of 1 COPY
--- NOTE | ~2016-08-02 | CR72 ---
[facility] A Service of [facility] & [facility] RADIOLOGY TEXT RESULTS PATIENT: JACQUIE CASAREZ [address] UNIT #: [id number] AGE: [address]: Donis Sifuentes MD SEX: F ORDER DR: [id number] [facility] [address] [place], [place] [address] [id number] I MR#: [id number] Acc #: [id number] NAME: JACQUIE CASAREZ : 1935 SEX: F STUDY DATE/TIME: 08/04/2016 15:13 UNIT: [facility] ROOM: [facility] STUDY DESCRIPTION: CR Chest Single View Portable Attending Physician: Donis Sifuentes M.D. Ordering Physician: Richy Hernandez M.D. Primary Care Physician: Ed Gates M.D. MEDICAL IMAGING REPORT This report is preliminary unless electronic signature is present EXAM Portable AP view of the chest. COMPARISON August 04, 2016, at 4:37 a.m. INDICATION 80-year-old female with dyspnea and respiratory failure. Right-sided chest tube placement for pneumothorax today. FINDINGS There is new right thoracostomy tube with apical orientation. Right pneumothorax has decreased significantly in size, now only with apical component measuring up to 5 mm in width. Endotracheal tube is adequately position approximately 4.9 inches above the jazmine. Right internal jugular catheter tip terminates in the SVC, grossly stable. There is new diffuse opacification of the left hemithorax with volume loss, most consistent with mucous plugging and collapse of the left lung. Cardiomediastinal silhouette not well evaluated due to diffuse opacification of the left chest. Minimal band-like opacities throughout the right lung, likely favoring mild bronchovascular crowding and/or atelectasis. Mild interstitial edema could also give this appearance. Questionable fracture of the left lateral sixth rib. IMPRESSION #1. Significantly diminished right pneumothorax after right chest tube placement. There is now only a small apical component measuring up to 5 mm in width. There are interstitial opacities throughout the right lung possibly reflecting bronchovascular crowding/atelectasis or mild interstitial edema. #2. New complete opacification of the left lung with volume loss most consistent with mucous plugging of the left mainstem bronchus and associated left lung collapse. [facility]. [facility] A Service of [facility] & [facility] RADIOLOGY TEXT RESULTS PATIENT: JACQUIE CASAREZ LOCATION: [address] : [birth year] UNIT #: [id number] AGE: [address]: Donis Sifuentes MD SEX: F ORDER DR: #3. Adequate position of endotracheal tube and right internal jugular catheter. Not mentioned specifically in the body of the report, there is a feeding tube not traced below the level of the stomach, grossly stable. #4. Findings most suggestive of left sixth lateral rib fracture. Dictated by... Dakota Tsai M.D. THIS IS AN ELECTRONICALLY VERIFIED REPORT Dakota Tsai M.D. at 08/09/2016 7:28 PM Ana TD: 08/04/2016 19:01 JOB #: [id number] MEDICAL IMAGING REPORT Page 1 of 1 COPY
--- NOTE | ~2016-08-02 | A ---
[facility] Nutrition Therapy DATE: 08/03/16 Patient: JACQUIE CASAREZ Physician: BENTLEY Address: [address] [place] [address] Room/Bed: [address], Zip: [place] [address] Admit Date: 08/02/16 Date of : 35 Height: 5 5 Weight: 248 112.5 NUTRITIONAL ASSESSMENT: REASON: NPO status in ICU 80 yo female admitted after being found down, unresponsive PMH: HTN, HLD, anemia, COPD, CHF, DM, hypothyroid, chronic respiratory failure, SERA Anthropometrics: Ht: 65" Wt: 107 kg BMI: 39.3 IBW: 56.8 kg Labs: K+ 3.4 Gluc 184 BUN 40 Creat 2.2 Ca++ 7.5 Alb 2.1 AST 366 ALT 168 Accuchecks 163 GFR 20.5 Meds: Novolog, D5%, levophed, pepcid I/O & Bowel function: 2862/141, last BM unknown Skin Integrity: Redness to nose/ coccyx/ inner thigh Bruising BUE/ right knee Skin tear LUE Edema: generalized Estimated Nutrition Needs: 1328-3053 kcals (12-16 kcals/kg) 91-114 grams protein (1.6-2.0 grams/kg) Assessment: Chart reviewed, events noted. 80 yo female admitted after being found down, now intubated in the ICU. Pt has extensive PMH as noted above. No plans for nutrition support at this time. Pt remains unresponsive, and no family in room to provide nutritional history. Please see recommendations below. Dx: Inadequate protein-energy intake RT clinical condition AEB NPO status. Intervention: 1. NPO 2. Enteral nutrition if appropriate Monitoring, Evaluation and Goals: 1. Enteral nutrition; initiate once appropriate, provide 80% goal volume 2. Improve labs; Gluc, creat, BUN, AST, ALT, GFR 3. Skin; prevent breakdown [facility] Nutrition Therapy DATE: 08/03/16 Patient: JACQUIE CASAREZ Physician: BENTLEY Address: [address] [place] [address] Room/Bed: [address], Zip: [place] [address] Admit Date: 08/02/16 Date of : 35 Height: 5 5 Weight: 248 112.5 Recommendations: 1. Once medically feasible and if deemed appropriate per MD, initiate enteral nutrition with Glucerna 1.5 @ 15 mL/hr + 30 mL Prostat BID . Increase by 10 mL q 6 hrs as tolerated to goal of 40 mL/hr + 30 mL Prostat BID. This would provide: 1640 kcals/ 109 grams protein/ 729 mL free H20 *Free H20 flushes per MD orders Pt is at moderate-severe nutritional risk. RD will follow hospital course per protocol. Respectfully, NELY ESPARZA RD, LD [employer] [facility] [employer] cc: client file
--- NOTE | ~2016-08-02 | DS ---
Unit #: [id number] #: [id number] Patient: MARCIA CASAREZ [id number] [address] [address] [id number] MR#: [id number] NAME: MARCIA CASAREZ ROOM: [facility] Age: 80 Sex: F Admission Date: 08/02/2016 : 1935 Discharge Date: 08/05/2016 Attending Physician: Donis Sifuentes M.D. Primary Care Physician: Ed Gates M.D. DISCHARGE SUMMARY SUMMARY DATE OF 08/05/2016 at 3:00 p.m. DISCHARGE DIAGNOSES 1. Cardiopulmonary arrest. 2. Pneumonia. 3. Pneumothorax. 4. Acute renal failure. 5. Atrial fibrillation. 6. Chronic obstructive pulmonary disease. 7. Diabetes mellitus. 8. Hypothyroidism. HOSPITAL COURSE Ms. Marcia Casarez, 80-year-old female, who was admitted after she had a cardiopulmonary arrest at home. She was resuscitated and admitted to ICU. Patient was started on pressors and broad-spectrum IV antibiotics. Patient was found to have right pneumothorax. Vascular surgeon was consulted. Patient had a chest tube placed. Patient's family decided for DNR and comfort care. Patient comfort care was started on 08/05/2016 and she on the same day at 3:00 p.m. Patient's family was very much aware of patient's poor prognosis. Dictated by... Sanjuana Almeida/farooq TD: 08/11/2016 10:29 JOB #: [id number] Unit #: [id number] #: [id number] Patient: MARCIA CASAREZ DISCHARGE SUMMARY Page 1 of 1 X Haydee Ontiveros MD X DISCHARGE SUMMARY
--- NOTE | ~2016-08-02 | US77 ---
[facility] A Service of [facility] RADIOLOGY TEXT RESULTS PATIENT: JACQUIE CASAREZ LOCATION: [address] : 35 UNIT #: [id number] AGE: [address]: Donis Sifuentes MD SEX: F ORDER DR: [id number] [id number] [facility]. [place], [place] [address] [id number] MR#: [id number] Acc #: [id number] NAME: JACQUIE CASAREZ : 1935 SEX: F STUDY DATE/TIME: 08/03/2016 12:21 UNIT: [id number] ROOM: [facility] STUDY DESCRIPTION: US Kidney Bilateral Complete Attending Physician: Donis Sifuentes M.D. Ordering Physician: Avril Fleming M.D. Primary Care Physician: Ed Gates M.D. MEDICAL IMAGING REPORT This report is preliminary unless electronic signature is present EXAM Renal ultrasound INDICATIONS Acute renal failure. Patient's creatinine is 2.2, estimated eGFR is 20.5. TECHNIQUE Krishna-scale and color Doppler sonographic images were obtained through the kidneys. FINDINGS Bladder is decompressed with a Riggins catheter. Patient has a simple cyst on the right kidney. There are 2 hypoechoic lesions which potentially may have some internal debris within them. They do not show definitive increased through transmission, the smaller measures 2.2 x 2.3 x 2.3 cm and the larger measures 2.9 x 3.5 x 3.3 cm. There is limited visualization of the left kidney due to patient's body habitus. No hydronephrosis identified on either side. IMPRESSION Technically limited examination due to patient's body habitus and overlying bowel gas. In fact, the patient is on a ventilator. Patient does appear to have bilateral renal cysts, 2 lesions within the right kidney are indeterminate, although they are favored to represent cysts. CT or MRI would allow for better characterization. No hydronephrosis is seen. Dictated by... Светлана Smith M.D. [facility] A Service of [facility] RADIOLOGY TEXT RESULTS PATIENT: JACQUIE CASAREZ [facility] UNIT #: [id number] AGE: [address]: Donis Sifuentes MD SEX: F ORDER DR: THIS IS AN ELECTRONICALLY VERIFIED REPORT Светлана Smith M.D. at 08/05/2016 7:54 AM AFF/pcl TD: 08/03/2016 18:15 JOB #: [id number] MEDICAL IMAGING REPORT Page 1 of 1 COPY
[2016-08-02 17:52] LABS: POC - CKMB 2.4 ng/mL (0.0-7.9); POC - TROPONIN 0.05 ng/mL (<=0.05)
[~2016-08-02 18:03] MED LIST changes: +ALBUTEROL2.5 MG/3 M INH; +ANASTROZOLE1 MG PO; +BREO ELLIPTA 11 EACH INH; +CELEXA10 M1 PO; +EFFEXOR-XR150 MG PO; +LOPRESSOR PO; +PAIN & FEVER325 MG PO; +POTASSIUM CHLO20 ME1 PO; +PREDNISONE10 MG PO; +PREDNISONE5 MG PO; +VERAPAMIL ER120 M1 PO
[2016-08-02 18:04] LABS: BASOPHIL% 0.2 % (0-2.5); EOSINOPHIL% 0.1 % (0.0-7.0); HEMATOCRIT 30.8 % (35.0-45.0); LYMPHOCYTE# 4.1 X10e3 (1.0-3.5); LYMPHOCYTE% 23.9 % (17.0-45.0); MEAN CELL VOLUME 90.2 FL (83-96); MEAN CORPUSCULAR HEMOGLOBIN 26.4 PG (28-34); MEAN CORPUSCULAR HGB CONC 29.3 g/dL (30-36); MEAN PLATELET VOLUME 8.4 FL (6.5-11.5); MONOCYTE# 0.8 X10e3 (0-1.0); MONOCYTE% 4.9 % (3.0-12.0); NEUTROPHIL# 12.1 X10e3 (1.5-7.1); NEUTROPHIL% 70.9 % (40-75); PLATELET COUNT 335 X10e3 (140-420); RED BLOOD COUNT 3.42 X10e (3.90-5.30); RED CELL DISTRIBUTION WIDTH 16.2 % (11.0-15.5); WHITE BLOOD COUNT 17.1 X10e3 (4.0-10.5)
[2016-08-02 18:06] LABS: DIFF IND YES
[2016-08-02 18:13] LABS: INR 1.2; PARTIAL THROMBOPLASTIN TIME 30.6 SECONDS (23.5-31.3); PROTHROMBIN TIME (PATIENT) 12.8 SECONDS (9.6-11.5)
[2016-08-02 18:27] LABS: HYPOCHROMIA SL; NUCLEATED RED BLOOD CELL 2 /100 ([, 0]); PLATELET ESTIMATE NORMAL (NORMAL)
[2016-08-02 18:42] LABS: ALBUMIN SERUM 2.1 g/dL (3.5-5.0); BILIRUBIN, DIRECT 0.2 mg/dL (0.0-0.2); BILIRUBIN,INDIRECT 0.5 mg/dL (0.0-0.9); BILIRUBIN,TOTAL 0.7 mg/dL (0.2-2.0); BUN/CREATININE RATIO 13.18; CALCIUM SERUM 8.2 mg/dL (8.4-10.2); CREATININE SERUM 2.2 mg/dL (0.6-1.4); GLOM FILT RATE Estimated 20.5 mL/min (>60); PROTEIN TOTAL SERUM 6.3 g/dL (6.0-8.3)
[2016-08-02 20:39] LABS: POC - TROPONIN 0.11 ng/mL (<=0.05)
[2016-08-02 21:50] LABS: ARTERIAL BLD GAS O2 SATURATION 95.1 % (90.0-100.0); ARTERIAL BLOOD GAS ALLEN TEST NORMAL; ARTERIAL BLOOD GAS ART SITE LEFT RADIAL; ARTERIAL BLOOD GAS HCO3 25.1 mmol/L; ARTERIAL BLOOD GAS MET HB 1.1 %sat (0.0-2.0); ARTERIAL BLOOD GAS PCO2 48.5 mmHg (35.0-45.0); ARTERIAL BLOOD GAS pH 7.323 (7.350-7.450); ARTERIAL DRAW? YES
[2016-08-02 21:51] LABS: ARTERIAL BLOOD GAS DELIVERY VENT; ARTERIAL BLOOD GAS VENT MODE AC
[2016-08-03 04:00] LABS: ARTERIAL BLD GAS O2 SATURATION 94.8 % (90.0-100.0); ARTERIAL BLOOD GAS HCO3 30.7 mmol/L; ARTERIAL BLOOD GAS MET HB 0.7 %sat (0.0-2.0); ARTERIAL BLOOD GAS PCO2 41.7 mmHg (35.0-45.0); ARTERIAL BLOOD GAS PO2 86.7 mmHg (80.0-100); ARTERIAL BLOOD GAS pH 7.476 (7.350-7.450)
[2016-08-03 04:04] LABS: ARTERIAL BLOOD GAS ART SITE RIGHT RADIAL; ARTERIAL BLOOD GAS DELIVERY VENT; ARTERIAL BLOOD GAS VENT MODE AC; ARTERIAL DRAW? YES
[2016-08-03 04:32] LABS: HEMATOCRIT 30.7 % (35.0-45.0); HEMOGLOBIN 9.3 gm/dL (12.0-16.0); LYMPHOCYTE# 1.3 X10e3 (1.0-3.5); LYMPHOCYTE% 4.8 % (17.0-45.0); MEAN CORPUSCULAR HGB CONC 30.2 g/dL (30-36); MEAN PLATELET VOLUME 8.2 FL (6.5-11.5); MONOCYTE# 1.3 X10e3 (0-1.0); MONOCYTE% 4.9 % (3.0-12.0); NEUTROPHIL# 24.1 X10e3 (1.5-7.1); NEUTROPHIL% 90.3 % (40-75); PLATELET COUNT 312 X10e3 (140-420); RED BLOOD COUNT 3.57 X10e (3.90-5.30); RED CELL DISTRIBUTION WIDTH 15.9 % (11.0-15.5)
[2016-08-03 04:33] LABS: DIFF IND NO; WHITE BLOOD COUNT 26.7 X10e3 (4.0-10.5)
[2016-08-03 04:48] LABS: BUN/CREATININE RATIO 18.18; CALCIUM SERUM 7.5 mg/dL (8.4-10.2); CREATININE SERUM 2.2 mg/dL (0.6-1.4); GLOM FILT RATE Estimated 20.5 mL/min (>60)
[2016-08-03 04:50] LABS: POTASSIUM 3.4 mmol/L (3.5-5.1)
[2016-08-03 10:36] LABS: URINE APPEARANCE TURBID; URINE BILIRUBIN NEG (NEG); URINE BLOOD 3+ (NEG); URINE COLOR YELLOW; URINE GLUCOSE 100 MG/DL (NEG); URINE KETONE NEG (NEG); URINE LEUKOCYTE ESTERASE 3+ (NEG); URINE NITRATE NEG (NEG); URINE PH 5.5 (5-8); URINE PROTEIN 1+ (NEG); URINE SPECIFIC GRAVITY 1.012 (1.003-1.035); URINE UROBILINOGEN 0.2 MG/DL (NEG)
[2016-08-03 10:39] LABS: URINE BACTERIA AUWI 2+ (NEGATIVE); URINE SQUAMOUS EPITHELIAL CELL FEW /[HPF]; UWBCS1 AUWI INNUM (0-5)
[2016-08-03 12:07] LABS: MAGNESIUM 1.2 mg/dL (1.6-3.0); POTASSIUM 3.5 mmol/L (3.5-5.1)
[2016-08-03 13:52] LABS: BUN/CREATININE RATIO 19.58; CALCIUM SERUM 7.4 mg/dL (8.4-10.2); CREATININE SERUM 2.4 mg/dL (0.6-1.4); GLOM FILT RATE Estimated 18.5 mL/min (>60); MAGNESIUM 1.2 mg/dL (1.6-3.0)
[2016-08-03 13:53] LABS: POTASSIUM 3.5 mmol/L (3.5-5.1)
[2016-08-03] MEDS ORDERED: ADVAIR 250-501 EAC1 INH (22:44)
[2016-08-03] MEDS ORDERED: BENAZEPRIL-HCT1 EAC1 PO (22:45)
[2016-08-03] MEDS ORDERED: CLONAZEPAM0.5 MG PO (22:46)
[2016-08-03] MEDS ORDERED: ESCITALOPRAM OX10 MG PO (22:47)
[2016-08-03] MEDS ORDERED: IPRATR-ALBUTEROL3 ML INH (22:49)
[2016-08-03] MEDS ORDERED: NITROFURANTOIN100 M3 PO (22:50)
[2016-08-03] MEDS ORDERED: RISPERIDONE1 MG PO (22:51)
[2016-08-03] MEDS ORDERED: SENNA8.6 M1 PO (22:52)
[2016-08-03] MEDS ORDERED: CARAFATE1 GM PO (22:52)
[2016-08-03] MEDS ORDERED: WARFARIN SODIUM4 M1 PO (22:53)
[2016-08-04 04:01] LABS: ARTERIAL BLD GAS O2 SATURATION 98.6 % (90.0-100.0); ARTERIAL BLOOD GAS HCO3 28.3 mmol/L; ARTERIAL BLOOD GAS PCO2 42.2 mmHg (35.0-45.0); ARTERIAL BLOOD GAS pH 7.435 (7.350-7.450)
[2016-08-04 04:06] LABS: ARTERIAL BLOOD GAS ALLEN TEST NORMAL; ARTERIAL BLOOD GAS ART SITE RIGHT RADIAL; ARTERIAL DRAW? YES
[2016-08-04 04:07] LABS: ARTERIAL BLOOD GAS DELIVERY VENT; ARTERIAL BLOOD GAS VENT MODE AC
[2016-08-04 05:28] LABS: HEMATOCRIT 30.1 % (35.0-45.0); HEMOGLOBIN 9.3 gm/dL (12.0-16.0); MEAN CELL VOLUME 84.5 FL (83-96); MEAN CORPUSCULAR HEMOGLOBIN 26.2 PG (28-34); MEAN PLATELET VOLUME 8.6 FL (6.5-11.5); RED BLOOD COUNT 3.56 X10e (3.90-5.30); RED CELL DISTRIBUTION WIDTH 16.4 % (11.0-15.5)
[2016-08-04 06:53] LABS: ALBUMIN SERUM 2.1 g/dL (3.5-5.0); BILIRUBIN,TOTAL 0.5 mg/dL (0.2-2.0); BUN/CREATININE RATIO 18.21; CALCIUM SERUM 7.4 mg/dL (8.4-10.2); CREATININE SERUM 2.8 mg/dL (0.6-1.4); GLOM FILT RATE Estimated 15.3 mL/min (>60); MAGNESIUM 1.6 mg/dL (1.6-3.0); PHOSPHOROUS 2.4 mg/dL (2.5-4.6); POTASSIUM 3.8 mmol/L (3.5-5.1); PROTEIN TOTAL SERUM 6.1 g/dL (6.0-8.3)
[2016-08-04 07:24] LABS: URINE APPEARANCE CLEAR; URINE BILIRUBIN NEG (NEG); URINE BLOOD 2+ (NEG); URINE COLOR YELLOW; URINE GLUCOSE NEG (NEG); URINE KETONE NEG (NEG); URINE LEUKOCYTE ESTERASE 2+ (NEG); URINE NITRATE NEG (NEG); URINE PROTEIN 1+ (NEG); URINE SPECIFIC GRAVITY 1.012 (1.003-1.035); URINE UROBILINOGEN 0.2 MG/DL (NEG)
[2016-08-04 07:27] LABS: URBCS1 AUWI 0-2 /[HPF] (0-2); URINE BACTERIA AUWI NEG (NEGATIVE); UWBCS1 AUWI 50-100 (0-5)
[2016-08-04 07:47] LABS: URINE GRANULAR CAST 0-2 /[HPF]; URINE MUCUS PRESENT
[2016-08-04 07:49] LABS: U HYALINE CASTS AUWI 0-2 /[LPF]; URINE SQUAMOUS EPITHELIAL CELL FEW /[HPF]
[2016-08-04 16:35] LABS: BASOPHIL# 0.1 X10e3 (0-0.3); BASOPHIL% 0.3 % (0-2.5); DIFF IND NO; HEMATOCRIT 28.5 % (35.0-45.0); HEMOGLOBIN 8.9 gm/dL (12.0-16.0); LYMPHOCYTE# 2.3 X10e3 (1.0-3.5); LYMPHOCYTE% 9.8 % (17.0-45.0); MEAN CELL VOLUME 83.7 FL (83-96); MEAN CORPUSCULAR HEMOGLOBIN 26.1 PG (28-34); MEAN CORPUSCULAR HGB CONC 31.2 g/dL (30-36); MEAN PLATELET VOLUME 8.2 FL (6.5-11.5); MONOCYTE# 1.6 X10e3 (0-1.0); MONOCYTE% 6.9 % (3.0-12.0); NEUTROPHIL# 19.5 X10e3 (1.5-7.1); PLATELET COUNT 295 X10e3 (140-420); WHITE BLOOD COUNT 23.5 X10e3 (4.0-10.5)
[2016-08-05 04:23] LABS: ALBUMIN SERUM 1.9 g/dL (3.5-5.0); BILIRUBIN,TOTAL 0.5 mg/dL (0.2-2.0); BUN/CREATININE RATIO 19.67; CALCIUM SERUM 6.9 mg/dL (8.4-10.2); CREATININE SERUM 3.1 mg/dL (0.6-1.4); GLOM FILT RATE Estimated 13.5 mL/min (>60); MAGNESIUM 1.9 mg/dL (1.6-3.0); PHOSPHOROUS 3.3 mg/dL (2.5-4.6); POTASSIUM 4.8 mmol/L (3.5-5.1); PROTEIN TOTAL SERUM 5.9 g/dL (6.0-8.3)
[2016-08-05 04:33] LABS: ARTERIAL BLD GAS O2 SATURATION 98.5 % (90.0-100.0); ARTERIAL BLOOD GAS CARBOXY HB 0.2 %sat (0.0-9.0); ARTERIAL BLOOD GAS MET HB 0.8 %sat (0.0-2.0); ARTERIAL BLOOD GAS pH 7.461 (7.350-7.450)
[2016-08-05 04:35] LABS: ARTERIAL BLOOD GAS ALLEN TEST NORMAL; ARTERIAL BLOOD GAS ART SITE RIGHT RADIAL; ARTERIAL BLOOD GAS DELIVERY VENT; ARTERIAL BLOOD GAS VENT MODE AC; ARTERIAL DRAW? YES
== END 2016-08-05 15:00 | disposition expired | DRG 208 ==
LOC: CED 18:03 → CEDOF 20:00 → CICCU3 22:15
PROVIDERS: Emergency Medicine; Hospitalist; Internal Medicine; Internal Medicine Cardiovascular Disease; Internal Medicine Nephrology
PROC: 5A1945Z Respiratory Ventilation, 24-96 Consecutive Hours (ICD-10-PCS; principal; 2016-08-02)
PROC: 0BH17EZ Insertion of Endotracheal Airway into Trachea, Via Natural or Artificial Opening (ICD-10-PCS; 2016-08-02)
PROC: B246ZZZ Ultrasonography of Right and Left Heart (ICD-10-PCS; 2016-08-03)
PROC: 0W9930Z Drainage of Right Pleural Cavity with Drainage Device, Percutaneous Approach (ICD-10-PCS; 2016-08-04)
DX: J96.20 Acute and chronic respiratory failure, unspecified whether with hypoxia or hypercapnia (principal); I46.9 Cardiac arrest, cause unspecified; N17.0 Acute kidney failure with tubular necrosis; G93.1 Anoxic brain damage, not elsewhere classified; J18.9 Pneumonia, unspecified organism; J44.0 Chronic obstructive pulmonary disease with (acute) lower respiratory infection; I11.0 Hypertensive heart disease with heart failure; I50.32 Chronic diastolic (congestive) heart failure; J93.9 Pneumothorax, unspecified; Z87.891 Personal history of nicotine dependence; I95.9 Hypotension, unspecified; I48.91 Unspecified atrial fibrillation; R79.89 Other specified abnormal findings of blood chemistry; E83.42 Hypomagnesemia; Z79.82 Long term (current) use of aspirin; G47.33 Obstructive sleep apnea (adult) (pediatric); E11.9 Type 2 diabetes mellitus without complications; E03.9 Hypothyroidism, unspecified; E78.5 Hyperlipidemia, unspecified; E66.9 Obesity, unspecified; Z68.39 Body mass index [BMI] 39.0-39.9, adult; Z90.49 Acquired absence of other specified parts of digestive tract; Z88.0 Allergy status to penicillin; Z88.8 Allergy status to other drugs, medicaments and biological substances; I45.10 Unspecified right bundle-branch block
CPT/HCPCS: 36415; 36600; 70450; 71010; 74000; 76770; 80048; 80053; 80061; 80076; 81003; 82308; 82550; 82553; 82803; 82947; 83605; 83735; 84100; 84132; 84443; 84484; 85025; 85027; 85610; 85730; 87040; 87086; 92950; 93005; 93306; 94002; 94003; 94640; 94760; 94761; 96365; 96366; 99285; J0282; J1650; J1815; J1956; J2060; J2270; J3260; J3370; J3475